=== PATIENT | male | born 1955 ===

== ENCOUNTER 2017-01-16 07:26 | Day surgery (SDC) | payer OTHER ==
[2017-01-16 09:00] VITALS: BMI 29.9
[2017-01-16] MEDS ORDERED: Propofol 10 mg/ml Inj (20 ML) ONE ×2 (10:20→10:40)
[2017-01-16] MEDS ORDERED: Lactated Ringer's 500 ML IV ONE (10:26)
--- NOTE | 2017-01-16 10:26 | CP.SDSHP ---
Same Day Surgery H & P - History Proposed Procedure: COLONSCOPY Pre-Op Diagnosis: SEE NOTES - Previous Medical/Surgical History Cardiac: Hypertension Endocrine/Metabolic: Diabetes Neuro: Backaches, Other - Allergies Allergies: Allergies No Known Allergies Allergy (Verified 01/16/17 08:58) - Physical Exam General Appearance: N Vital Signs: Vital Signs 01/16/17 09:08 Temperature 97 F L Pulse Rate 90 Respiratory 20 Rate Blood Pressure 149/97 H O2 Sat by Pulse 97 Oximetry Mental Status: Alert & Oriented x3 Neuro: Other Heart: Other Lungs: WNL GI: WNL - {Optional Preform as Required} Breast: WNL Abdomen: Other Rectal: Other Integument: WNL : WNL Ortho: Other ENT: WNL - Impression Pt. Evaluated Today:Candidate for Anesthesia & Procedure: Yes - Date & Time Time: 10:26 Short Stay Discharge - Short Stay Discharge Admitting Diagnosis/Reason for Visit: RECTAL BLEEDING Disposition: HOME/ ROUTINE
[2017-01-16] MEDS ORDERED: Belladonna-Phenobarbital PO STA (10:28)
[2017-01-16 12:01] VITALS: RESP 15
[2017-01-16 13:51] VITALS: BP 148/88; PULSE 96; TEMP 98; O2SAT 96
== END 2017-01-16 12:10 | disposition home or self-care (01) ==
LOC: C.ENDO 07:26
PROVIDERS: ATTEND Specialist
DX: K64.4 Residual hemorrhoidal skin tags (principal); K64.8 Other hemorrhoids; K58.9 Irritable bowel syndrome, unspecified; E11.9 Type 2 diabetes mellitus without complications; I10 Essential (primary) hypertension
CPT/HCPCS: 45380; 82948; 88305; J2704; J7120

== ENCOUNTER 2017-04-22 11:05 | Inpatient (IN) | payer MEDICAID, OTHER ==
[2017-04-22 11:11] VITALS: BMI 30.7
--- NOTE | 2017-04-22 11:51 | C.PDOC ---
History Of Present Illness 61 yo male w/PMHx of HTN, NIDDM, come in for evaluation of fever ( T max 103F), bodyaches, malaise for past 2 days. Pt admits, (+) sick contact "family member with sinus infection". Pt admits, returned from [place] 2 weeks ago. Otherwise, pt denies headache, dizziness, syncopy, neck pain, sore throat, drooling, rash, CP, SOB, cough, wheezing, palpitation, abd. pain, N/V/D, UTi sx. Ambulate to ED for evaluation, not in any apparent distress. Pt reports, last dose of tylenol 2 hrs [employer]. Time Seen by Provider: 04/22/17 11:21 Chief Complaint (Nursing): Fever History Per: Patient Onset/Duration Of Symptoms: Gradual Current Symptoms Are (Timing): Worse Past Medical History Reviewed: Historical Data, Nursing Documentation, Vital Signs Vital Signs: Last Vital Signs Temp 98.3 F 04/24/17 07:26 Pulse 102 H 04/24/17 07:26 Resp 20 04/24/17 07:26 BP 149/86 04/24/17 09:10 Pulse Ox 94 L 04/24/17 09:27 - Medical History PMH: Diabetes, HTN, TIA (2015; NO RESIDUAL WEAKNESS) Denies: Colonic Polyps, Fractures Other Surgeries: not contributory Family History: States: No Known Family Hx - Social History Hx Tobacco Use: No Hx Alcohol Use: No Hx Substance Use: No - Immunization History Hx Tetanus Toxoid Vaccination: No Hx Influenza Vaccination: Yes Hx Pneumococcal Vaccination: No Review Of Systems Except As Marked, All Systems Reviewed And Found Negative. Constitutional: Positive for: Fever, Malaise Eyes: Negative for: Vision Change, Eyelid Inflammation, Redness ENT: Negative for: Ear Discharge, Nose Discharge, Mouth Swelling, Throat Pain, Throat Swelling Cardiovascular: Negative for: Chest Pain, Palpitations Respiratory: Negative for: Cough, Shortness of Breath, SOB with Excertion, Pleuritic Pain, Sputum, Wheezing Gastrointestinal: Negative for: Nausea, Vomiting, Abdominal Pain, Diarrhea Genitourinary: Negative for: Dysuria, Frequency, Hematuria, Penile Discharge Musculoskeletal: Negative for: Back Pain Skin: Negative for: Rash Neurological: Negative for: Weakness, Numbness, Altered Mental Status, Headache , Dizziness Physical Exam - Physical Exam Appears: Well, Non-toxic, No Acute Distress Skin: Normal Color, Warm, Dry, No Rash Eye(s): bilateral: PERRL Ear(s): Left: Normal Nose: No Flaring, No Discharge Oral Mucosa: Moist Tongue: Normal Appearing Lips: Normal Appearing Throat: Erythema (mild B/L , no edema, no exudate.), No Exudate, No Drooling Neck: Supple, Other ((-) carotid bruits) Cardiovascular: Rhythm Regular (tachy), No Friction Rub, No Murmur Respiratory: Decreased Breath Sounds (Right base), No Accessory Muscle Use, Rhonchi (scattered Right base), No Stridor, No Wheezing Gastrointestinal/Abdominal: Soft, Tenderness, No Distention, No Guarding Back: No CVA Tenderness Extremity: No Pedal Edema, No Deformity Neurological/Psych: Oriented x3, Normal Speech ED Course And Treatment - Laboratory Results Result Diagrams: 04/24/17 07:46 04/24/17 07:46 Lab Interpretation: Abnormal ECG: Interpreted By Me, Viewed By Me (and ED attending) ECG Rhythm: Sinus Tachycardia ECG Interpretation: Abnormal Interpretation Of ECG: Sinus tachy@125/min, occasional PVC, LAD, no acute ST-T changes. O2 Sat by Pulse Oximetry: 94 Pulse Ox Interpretation: Abnormal - Radiology CXR Interpretation: Yes: Infiltrates - Other Rad CXR X-Ray: Read By Radiologist Interpretation: Accession No. : [id number]. Patient Name / ID : JORDI BRUNSON / [id number]. Exam Date : 04/22/2017 11:43:37 ( Approved ). Study Comment : Sex / Age : M / 61Y. Creator : Miguel Keyes MD. Dictator : Miguel Keyes MD. Surgical Instrument Technician : Direct Chill Caster : Miguel Keyes MD. Approver2 : Report Date : 04/22/2017 12:30:50. My Comment : . HISTORY: Sepsis Patient. COMPARISON: No prior. TECHNIQUE: Chest PA and lateral. FINDINGS: LUNGS: Right lower lobe infiltrate suggestive of pneumonia. PLEURA : No significant pleural effusion identified. No pneumothorax apparent. CARDIOVASCULAR: Normal. OSSEOUS STRUCTURES: No significant abnormalities. VISUALIZED UPPER ABDOMEN: Normal. OTHER FINDINGS: None. IMPRESSION: Right lower lobe pneumonia. Progress Note: Pt presented to ED with sx of sepsis. Septic work up was ordered. Vigorous hydration with NS was ordered. After diagnostics and imaging review, pt has clinical findings c/w PNA r/o sepsis. Abx orederd. Case discussed with ED attending DR. Boggs. On re-eavluation, pt appears stable, comfortable, not in respirtaory distress, no evidence of acidosis. Case discussed with Hospitalist and admission arranged to tele. Critical Care Time - Critical Care Note Total Time (in mins): 50 Documented critical care: time excludes all time spent performing seperately billable procedures. Disposition - Disposition Disposition: HOSPITALIZED Disposition Time: 13:38 Condition: STABLE - Clinical Impression Clinical Impression: Pneumonia, Sepsis
[2017-04-22 12:00] LABS: BASO # 0.1 K/uL (0.0-0.2); BASO % 0.4 % (0.0-2.0); EOS % 0.1 % (0.0-4.0); HEMATOCRIT 44.8 % (35.0-51.0); LYMPH # 1.8 K/uL (1.0-4.3); LYMPH % 9.9 % (20.0-40.0); MEAN CELL VOLUME 83.9 fL (80.0-94.0); MEAN CORPUSCULAR HGB CONC 34.5 g/dL (33.0-37.0); MEAN PLATELET VOLUME 7.6 fL (7.2-11.7); MONO # 1.4 K/uL (0.0-0.8); NRBC % 0.1 % (0.0-2.0); PLATELET COUNT 310 K/uL (130-400); WHITE BLOOD COUNT 17.8 K/uL (4.8-10.8)
[2017-04-22 12:09] LABS: POTASSIUM 3.8 mmol/L (3.6-5.2); SODIUM 132 mmol/L (132-148)
[2017-04-22 12:11] LABS: ALB/GLOB RATIO 1.1 (1.0-2.1); ALKALINE PHOSPHATASE 95 U/L (38-126); AST/SGOT 26 U/L (17-59); BILIRUBIN,TOTAL 1.2 mg/dL (0.2-1.3); BLOOD UREA NITROGEN 9 mg/dL (9-20); CARBON DIOXIDE 25 mmol/L (22-30); GFR AFRICAN-AMERICAN > 60; INR 1.3; TOTAL PROTEIN 7.1 g/dL (6.3-8.3)
[2017-04-22 12:11] LABS: VENOUS BLOOD GAS BASE EXCESS 0.6 mmol/L (0.0-2.0); VENOUS BLOOD GAS PCO2 36 mmHg (40-60); VENOUS BLOOD PH 7.44 (7.32-7.43)
[2017-04-22 12:12] LABS: ALT/SGPT 46 U/L (21-72); CALCIUM 9.3 mg/dl (8.6-10.4); GLUCOSE,RANDOM 352 mg/dL (75-110); MAGNESIUM 1.6 mg/dL (1.6-2.3); PHOSPHOROUS 2.7 mg/dL (2.5-4.5)
[2017-04-22 12:14] LABS: CHLORIDE 91 mmol/L (98-107)
--- NOTE | 2017-04-22 12:32 | RAD ---
HISTORY: Sepsis Patient COMPARISON: No prior. TECHNIQUE: Chest PA and lateral FINDINGS: LUNGS: Right lower lobe infiltrate suggestive of pneumonia. PLEURA: No significant pleural effusion identified. No pneumothorax apparent. CARDIOVASCULAR: Normal. OSSEOUS STRUCTURES: No significant abnormalities. VISUALIZED UPPER ABDOMEN: Normal. OTHER FINDINGS: None. IMPRESSION: Right lower lobe pneumonia. No preliminary report provided by emergency department personnel.
[2017-04-22 12:40] LABS: RBC URINE 1 /hpf (0-3); URINE BILIRUBIN NEGATIVE (NEGATIVE); URINE BLOOD NEGATIVE (NEGATIVE); URINE COLOR Yellow (YELLOW); URINE GLUCOSE (UA) 3+ mg/dL (Normal); URINE KETONE 1+ mg/dL (NEGATIVE); URINE LEUKOCYTE ESTERASE NEG Leu/uL (Negative); URINE PROTEIN 2+ mg/dL (NEGATIVE); URINE UROBILINOGEN NORMAL mg/dL (0.2-1.0); WBC URINE 1 /hpf (0-5)
[2017-04-22] MEDS ORDERED: Piperacill/Tazo 4.5gm in Dex 4.5 GM/100 ML BAG IVPB STA (13:35)
[2017-04-22] MEDS ORDERED: Albuterol 0.083% Inhal Sol (2.5 mg/3 mL) UD IH STA (13:38)
--- NOTE | 2017-04-22 14:08 | CP.PCM.HP ---
<Luann العراقي - Last Filed: 04/22/17 16:29> History of Present Illness - History of Present Illness History of Present Illness: Medicine Note for Dr. Jessica George CC: fever HPI: 61M with PMHx DM presents to the ED with fever, chills, night sweats, generalized body ache, weakness, and a nonproductive cough x 1 day. Patient reports he recently came back from [place] on 04/09/17. He was there for 21 days, were he admitted to being around a sick contact, his daughter who was diagnosed with sinusitis. He reported feeling the symptoms listed above, started yesterday after returning from the [place]. He came home and took his temperature and it was 102.3F, so he took Tylenol. Patient woke up this morning and continued to feel the same so he came to the ED. Reports he was admitted to [facility] for pneumonia several years ago. He stated he received his pneumonia vaccine in Fall 2015. Denied chest pain, abdominal pain, n/v/c, or urinary symptoms. PMHx: NIDM PSHx: Denied Meds: As per NOV All: NKDA SHx: Used to smoke 1PPD for 30 years, stopped 10 years ago, drinks alcohol socially, denied illicit drug use. FHx: Unremarkable Present on Admission - Present on Admission Any Indicators Present on Admission: No Past Patient History - Past Medical History & Family History Past Medical History?: Yes - Past Social History Smoking Status: Former Smoker - CARDIAC Hx Hypertension: Yes - NEUROLOGICAL Hx Transient Ischemic Attacks (TIA): Yes (2014; NO RESIDUAL WEAKNESS) - ENDOCRINE/METABOLIC Hx Endocrine Disorders: Yes Hx Diabetes Mellitus Type 2: Yes - HEMATOLOGICAL/ONCOLOGICAL Hx Blood Transfusions: No - MUSCULOSKELETAL/RHEUMATOLOGICAL Hx Fractures: No - GASTROINTESTINAL Hx Gastrointestinal Disorders: No - PSYCHIATRIC Hx Substance Use: No - SURGICAL HISTORY Hx Surgeries: No - ANESTHESIA Hx Anesthesia: No Hx Anesthesia Reactions: No Hx Malignant Hyperthermia: No Meds Allergies/Adverse Reactions: Allergies Allergy/AdvReac Type Severity Reaction Status Date / Time No Known Allergies Allergy Verified 04/22/17 11:09 Physical Exam - Constitutional Appears: Toxic - Head Exam Head Exam: NORMAL INSPECTION, NORMOCEPHALIC - Eye Exam Eye Exam: EOMI, Normal appearance, PERRL - ENT Exam ENT Exam: Mucous Membranes Dry - Respiratory Exam Respiratory Exam: Decreased Breath Sounds, NORMAL BREATHING PATTERN Additional comments: Decreased breath sounds on the right - Cardiovascular Exam Cardiovascular Exam: Tachycardia - GI/Abdominal Exam GI & Abdominal Exam: Distended, Firm, Normal Bowel Sounds, Soft. absent: Organomegaly - Extremities Exam Extremities exam: Positive for: normal inspection, pedal pulses present. Negative for: pedal edema, tenderness - Back Exam Back exam: NORMAL INSPECTION. absent: CVA tenderness (L), CVA tenderness (R) - Neurological Exam Neurological exam: Alert, CN II-XII Intact, Oriented x3 - Psychiatric Exam Psychiatric exam: Normal Affect, Normal Mood - Skin Skin Exam: Diaphoretic, Intact, Warm Results - Vital Signs Recent Vital Signs: Last Vital Signs Temp 98.5 F 04/22/17 13:08 Pulse 112 H 04/22/17 13:08 Resp 22 04/22/17 13:08 BP 159/87 H 04/22/17 13:08 Pulse Ox 94 L 04/22/17 13:38 - Labs Result Diagrams: 04/22/17 11:56 04/22/17 11:56 Labs: Laboratory Results - last 24 hr 04/22/17 04/22/17 04/22/17 11:34 11:56 11:56 WBC 17.8 H RBC 5.33 Hgb 15.4 Hct 44.8 MCV 83.9 MCH 29.0 MCHC 34.5 RDW 14.0 Plt Count 310 MPV 7.6 Neut % (Auto) 81.6 H Lymph % (Auto) 9.9 L [place] % (Auto) 8.0 Eos % (Auto) 0.1 Baso % (Auto) 0.4 Neut # 14.6 H Lymph # 1.8 [place] # 1.4 H Eos # 0.0 Baso # 0.1 PT 14.4 H INR 1.3 APTT 29 pO2 VBG pH VBG pCO2 VBG HCO3 VBG Total CO2 VBG O2 Sat (Calc) VBG Base Excess VBG Potassium Glucose Lactate Sodium Potassium Chloride Carbon Dioxide Anion Gap BUN Creatinine Est GFR ( Amer) Est GFR (Non-Af Amer) Random Glucose Calcium Phosphorus Magnesium Total Bilirubin AST ALT Alkaline Phosphatase Troponin I Total Protein Albumin Globulin Albumin/Globulin Ratio Venous Blood Potassium Urine Color Urine Clarity Urine pH Ur Specific [place] Urine Protein Urine Glucose (UA) Urine Ketones Urine Blood Urine Nitrate Urine Bilirubin Urine Urobilinogen Ur Leukocyte Esterase Urine WBC (Auto) Urine RBC (Auto) Ur Squamous Epith Cells Influenza Typ A,B (EIA) Negative for flu a/b Grp A Beta Strep Ag Negative 04/22/17 04/22/17 04/22/17 11:56 12:02 12:15 WBC RBC Hgb Hct MCV MCH MCHC RDW Plt Count MPV Neut % (Auto) Lymph % (Auto) [place] % (Auto) Eos % (Auto) Baso % (Auto) Neut # Lymph # [place] # Eos # Baso # PT INR APTT pO2 28 L VBG pH 7.44 H VBG pCO2 36 L VBG HCO3 24.3 VBG Total CO2 25.6 VBG O2 Sat (Calc) 63.8 VBG Base Excess 0.6 VBG Potassium 3.8 Glucose 366 H Lactate 2.3 H Sodium 132 133.0 Potassium 3.8 Chloride 91 L 95.0 L Carbon Dioxide 25 Anion Gap 20 BUN 9 Creatinine 0.8 Est GFR ( Amer) > 60 Est GFR (Non-Af Amer) > 60 Random Glucose 352 H Calcium 9.3 Phosphorus 2.7 Magnesium 1.6 Total Bilirubin 1.2 AST 26 ALT 46 Alkaline Phosphatase 95 Troponin I < 0.0120 Total Protein 7.1 Albumin 3.7 Globulin 3.4 Albumin/Globulin Ratio 1.1 Venous Blood Potassium 3.8 Urine Color Yellow Urine Clarity Clear Urine pH 6.0 Ur Specific [place] 1.033 H Urine Protein 2+ H Urine Glucose (UA) 3+ H Urine Ketones 1+ H Urine Blood Negative Urine Nitrate Negative Urine Bilirubin Negative Urine Urobilinogen Normal Ur Leukocyte Esterase Neg Urine WBC (Auto) 1 Urine RBC (Auto) 1 Ur Squamous Epith Cells < 1 Influenza Typ A,B (EIA) Grp A Beta Strep Ag Assessment & Plan - Assessment and Plan (Free Text) Plan: RLL Pneumonia * Low grade fever, tachycardia, leukocytosis with left shift, lactate of 2.3 -- > 2.1 --> F/U repeat * Code Sepsis called - Dr. Kay consulted- help appreciated * Patient was given 3L of fluids in the ED. * CXR: RLL Pneumonia * Negative Influenza and Group B Strep * Duonebs PRN, Tylenol PRN, Placed on NS @80cc/hr * Started on Rocephin and Azithromax 04/22/17 - last hospitalization was 5/9/17, > than 2 months * Blood cultures ordered, Urine legionella, Mycoplasma and Strep Pneumonia Code Sepsis * Patient does not meet sepsis criteria on qSOFA and SOFA criteria * Please see above DM * Accuchecks * Patient takes at home: Amaryl 4mg PO BID and Janumet 1 tab PO BID - HELD * ISS-High * Diabetic Diet * Started on Crestor 5mg PO QHS * Patient counselled on following up with Podiatry every year and ophthalmology every 2 years. * F/U HGA1C, TSH, T4 Questionable Hx of HTN * Patient started on Vasotec 10mg PO daily * EKG: Sinus tachy@125/min, occasional PVC, LAD, no acute ST-T changes * F/U lipid panel Hx of Questionable CVA * ASA 81mg PO daily Hx of Rectal bleeding * Colonoscopy on 01/16/2017 - non- bleeding external and internal hemorrhoids * Pathology - benign Prophylactic Measures * GI PPX: Pepcid 20mg PO daily * DVT PPX: SCDs, Lovenox 40mg SC daily DW Dulce Maria Goodwin DO, PGY-1 <Jason George - Last Filed: 04/22/17 22:00> Results - Vital Signs Recent Vital Signs: Last Vital Signs Temp 98 F 04/22/17 20:37 Pulse 100 H 04/22/17 20:37 Resp 30 H 04/22/17 20:37 BP 118/98 H 04/22/17 20:37 Pulse Ox 97 04/22/17 20:37 - Labs Result Diagrams: 04/22/17 11:56 04/22/17 11:56 Labs: Laboratory Results - last 24 hr 04/22/17 04/22/17 15:35 19:41 pO2 21 L VBG pH 7.39 VBG pCO2 37 L VBG HCO3 21.5 VBG Total CO2 23.5 VBG O2 Sat (Calc) 42.4 VBG Base Excess -2.2 L VBG Potassium 3.2 L Sodium 137.0 Chloride 103.0 Glucose 301 H Lactate 2.1 Lactic Acid 2.7 H Venous Blood Potassium 3.2 L Attending/Attestation - Attestation I have personally seen and examined this patient.: Yes I have fully participated in the care of the patient.: Yes I have reviewed all pertinent clinical information: Yes Notes (Text): 04/22/17 21:59 Patient was seen and examined with the resident History, Physical, Assessment and Plan were thoroughly gone over with the resident. Jason George D.O.
[2017-04-22] MEDS ORDERED: Albuterol-Ipratrop 3 mg / 0.5 (3 ml) UD ONE (14:11)
[2017-04-22] MEDS ORDERED: Albuterol-Ipratrop 3 mg / 0.5 (3 ml) UD INH PRN (14:25)
[2017-04-22] MEDS ORDERED: Sodium Chloride 0.9% 1,000 ML IV SCH ×2 (14:30→17:00)
[2017-04-22 14:35] LABS: NEUTROPHIL 79 % (50-75); TOTAL CELLS COUNTED 100
[2017-04-22 15:42] LABS: VENOUS BLOOD GAS BASE EXCESS -2.2 mmol/L (0.0-2.0); VENOUS BLOOD GAS PCO2 37 mmHg (40-60); VENOUS BLOOD PH 7.39 (7.32-7.43)
[2017-04-22] MEDS ORDERED: (Novolin R) Insulin Human Regular 100 units/ml vial SC SCH ×3 (16:30)
[2017-04-22] MEDS ORDERED: cefTRIAXone IV 1 gm in Dextros 50 ML IVPB ONE (17:26)
[2017-04-22] MEDS ORDERED: Azithromycin 500mg/250ML NS 500 MG/250 ML BAG IVPB ONE (17:43)
[2017-04-22] MEDS: Azithromycin 500 MG in Sodium Chloride 0.9% 250 ML IVPB SCH (17:44)
[2017-04-22 17:59] LABS: T4 6.2 ug/dL (5.5-11.0)
[2017-04-22 18:13] LABS: THYROID STIMULATING HORMONE 0.99 mIU/L (0.46-4.68)
[2017-04-22] MEDS: (Novolin R) Insulin Human Regular 100 units/ml vial SC SCH (23:09)
[2017-04-23 06:39] LABS: ALB/GLOB RATIO 1.1 (1.0-2.1); ALKALINE PHOSPHATASE 80 U/L (38-126); ALT/SGPT 37 U/L (21-72); AST/SGOT 24 U/L (17-59); BILIRUBIN,TOTAL 0.6 mg/dL (0.2-1.3); BLOOD UREA NITROGEN 7 mg/dL (9-20); CALCIUM 8.5 mg/dl (8.6-10.4); CARBON DIOXIDE 24 mmol/L (22-30); CHLORIDE 98 mmol/L (98-107); CHOLESTEROL 135 mg/dL (0-199); GFR AFRICAN-AMERICAN > 60; GLUCOSE,RANDOM 284 mg/dL (75-110); POTASSIUM 3.7 mmol/L (3.6-5.2); SODIUM 134 mmol/L (132-148); TOTAL PROTEIN 6.1 g/dL (6.3-8.3)
[2017-04-23 07:07] LABS: BASO % 0.3 % (0.0-2.0); EOS # 0.1 K/uL (0.0-0.7); EOS % 0.9 % (0.0-4.0); LYMPH # 2.1 K/uL (1.0-4.3); LYMPH % 14.7 % (20.0-40.0); MEAN CELL VOLUME 84.5 fL (80.0-94.0); MEAN CORPUSCULAR HEMOGLOBIN 28.6 pg (27.0-31.0); MEAN CORPUSCULAR HGB CONC 33.9 g/dL (33.0-37.0); MEAN PLATELET VOLUME 7.8 fL (7.2-11.7); MONO # 1.2 K/uL (0.0-0.8); MONO % 8.7 % (0.0-10.0); WHITE BLOOD COUNT 14.3 K/uL (4.8-10.8)
[2017-04-23] MEDS: (Novolin R) Insulin Human Regular 100 units/ml vial SC SCH ×4 (09:22→22:10)
[2017-04-23] MEDS: Enoxaparin 40 mg Syringe SC SCH (10:48)
[2017-04-23] MEDS: Azithromycin 500 MG in Sodium Chloride 0.9% 250 ML IVPB SCH (12:45)
--- NOTE | 2017-04-23 18:23 | CP.PCM.CON ---
History of Present Illness - History of Present Illness History of Present Illness: dictated Past Patient History - Past Medical History & Family History Past Medical History?: Yes - Past Social History Smoking Status: Former Smoker - CARDIAC Hx Hypertension: Yes - PULMONARY Hx Pneumonia: Yes - NEUROLOGICAL Hx Transient Ischemic Attacks (TIA): Yes (2014; NO RESIDUAL WEAKNESS) - HEENT Hx HEENT Problems: No - RENAL Hx Chronic Kidney Disease: No - ENDOCRINE/METABOLIC Hx Endocrine Disorders: Yes Hx Diabetes Mellitus Type 2: Yes - HEMATOLOGICAL/ONCOLOGICAL Hx Blood Disorders: No Hx Blood Transfusions: No - INTEGUMENTARY Hx Dermatological Problems: No - MUSCULOSKELETAL/RHEUMATOLOGICAL Hx Musculoskeletal Disorders: No Hx Falls: No Hx Fractures: No - GASTROINTESTINAL Hx Gastrointestinal Disorders: No - GENITOURINARY/GYNECOLOGICAL Hx Genitourinary Disorders: No - PSYCHIATRIC Hx Psychophysiologic Disorder: No Hx Substance Use: No - SURGICAL HISTORY Hx Surgeries: No - ANESTHESIA Hx Anesthesia: No Hx Anesthesia Reactions: No Hx Malignant Hyperthermia: No Meds Allergies/Adverse Reactions: Allergies Allergy/AdvReac Type Severity Reaction Status Date / Time No Known Allergies Allergy Verified 04/22/17 11:09 - Medications Medications: Current Medications Albuterol/Ipratropium (Duoneb 3 Mg/0.5 Mg (3 Ml) Ud) 3 ml INH RQ6 PRN PRN Reason: Wheezing Aspirin (Aspirin Chewable) 81 mg PO DAILY [facility] Last Admin: 04/23/17 10:48 Dose: 81 mg Enalapril Maleate (Vasotec) 10 mg PO DAILY [facility] Last Admin: 04/23/17 10:48 Dose: 10 mg Enoxaparin Sodium (Lovenox) 40 mg SC DAILY [facility] Last Admin: 04/23/17 10:48 Dose: 40 mg Famotidine (Pepcid) 20 mg PO DAILY [facility] Last Admin: 04/23/17 10:48 Dose: 20 mg Azithromycin 500 mg/ Sodium (Chloride) 250 mls @ 250 mls/hr IVPB DAILY [facility] Last Admin: 04/23/17 12:45 Dose: 250 mls/hr Ceftriaxone Sodium 1 gm/ (Sodium Chloride) 100 mls @ 100 mls/hr IVPB DAILY [facility] Last Admin: 04/23/17 09:22 Dose: 100 mls/hr Insulin Human Regular (Novolin R) 0 unit SC ACHS [facility] PRN Reason: Protocol Last Admin: 04/23/17 12:43 Dose: 6 unit Pneumococcal Polyvalent Vaccine (Pneumovax 23 Vaccine) 0.5 ml IM .ONCE ONE Stop: 04/24/17 10:01 Rosuvastatin Calcium (Crestor) 5 mg PO HS SHRUTHI Last Admin: 04/22/17 22:52 Dose: 5 mg Results - Vital Signs Recent Vital Signs: Last Vital Signs Temp 99.2 F 04/23/17 16:43 Pulse 108 H 04/23/17 16:43 Resp 20 04/23/17 16:43 BP 165/84 H 04/23/17 16:43 Pulse Ox 95 04/23/17 16:43 - Labs Result Diagrams: 04/23/17 06:22 04/23/17 06:22 Labs: Laboratory Results - last 24 hr 04/22/17 04/22/17 04/23/17 19:41 23:04 06:22 WBC 14.3 H RBC 5.21 Hgb 14.9 Hct 44.0 MCV 84.5 MCH 28.6 MCHC 33.9 RDW 14.0 Plt Count 279 MPV 7.8 Neut % (Auto) 75.4 H Lymph % (Auto) 14.7 L [place] % (Auto) 8.7 Eos % (Auto) 0.9 Baso % (Auto) 0.3 Neut # 10.8 H Lymph # 2.1 [place] # 1.2 H Eos # 0.1 Baso # 0.0 Sodium Potassium Chloride Carbon Dioxide Anion Gap BUN Creatinine Est GFR ( Amer) Est GFR (Non-Af Amer) POC Glucose (mg/dL) 256 H Random Glucose Hemoglobin A1c Lactic Acid 2.7 H Calcium Total Bilirubin AST ALT Alkaline Phosphatase Total Protein Albumin Globulin Albumin/Globulin Ratio Triglycerides Cholesterol LDL Cholesterol Direct HDL Cholesterol 04/23/17 04/23/17 04/23/17 06:22 06:22 06:53 WBC RBC Hgb Hct MCV MCH MCHC RDW Plt Count MPV Neut % (Auto) Lymph % (Auto) [place] % (Auto) Eos % (Auto) Baso % (Auto) Neut # Lymph # [place] # Eos # Baso # Sodium 134 Potassium 3.7 Chloride 98 Carbon Dioxide 24 Anion Gap 15 BUN 7 L Creatinine 0.6 L Est GFR ( Amer) > 60 Est GFR (Non-Af Amer) > 60 POC Glucose (mg/dL) 294 H Random Glucose 284 H Hemoglobin A1c 11.1 H Lactic Acid Calcium 8.5 L Total Bilirubin 0.6 AST 24 ALT 37 Alkaline Phosphatase 80 Total Protein 6.1 L Albumin 3.2 L Globulin 2.8 Albumin/Globulin Ratio 1.1 Triglycerides 204 H Cholesterol 135 LDL Cholesterol Direct 96 HDL Cholesterol 19 L 04/23/17 04/23/17 11:47 17:23 WBC RBC Hgb Hct MCV MCH MCHC RDW Plt Count MPV Neut % (Auto) Lymph % (Auto) [place] % (Auto) Eos % (Auto) Baso % (Auto) Neut # Lymph # [place] # Eos # Baso # Sodium Potassium Chloride Carbon Dioxide Anion Gap BUN Creatinine Est GFR ( Amer) Est GFR (Non-Af Amer) POC Glucose (mg/dL) 293 H 300 H Random Glucose Hemoglobin A1c Lactic Acid Calcium Total Bilirubin AST ALT Alkaline Phosphatase Total Protein Albumin Globulin Albumin/Globulin Ratio Triglycerides Cholesterol LDL Cholesterol Direct HDL Cholesterol
--- NOTE | 2017-04-23 18:35 | CP.PCM.CON ---
History of Present Illness - History of Present Illness History of Present Illness: dictated Past Patient History - Past Medical History & Family History Past Medical History?: Yes - Past Social History Smoking Status: Former Smoker - CARDIAC Hx Hypertension: Yes - PULMONARY Hx Pneumonia: Yes - NEUROLOGICAL Hx Transient Ischemic Attacks (TIA): Yes (2014; NO RESIDUAL WEAKNESS) - HEENT Hx HEENT Problems: No - RENAL Hx Chronic Kidney Disease: No - ENDOCRINE/METABOLIC Hx Endocrine Disorders: Yes Hx Diabetes Mellitus Type 2: Yes - HEMATOLOGICAL/ONCOLOGICAL Hx Blood Disorders: No Hx Blood Transfusions: No - INTEGUMENTARY Hx Dermatological Problems: No - MUSCULOSKELETAL/RHEUMATOLOGICAL Hx Musculoskeletal Disorders: No Hx Falls: No Hx Fractures: No - GASTROINTESTINAL Hx Gastrointestinal Disorders: No - GENITOURINARY/GYNECOLOGICAL Hx Genitourinary Disorders: No - PSYCHIATRIC Hx Psychophysiologic Disorder: No Hx Substance Use: No - SURGICAL HISTORY Hx Surgeries: No - ANESTHESIA Hx Anesthesia: No Hx Anesthesia Reactions: No Hx Malignant Hyperthermia: No Meds Allergies/Adverse Reactions: Allergies Allergy/AdvReac Type Severity Reaction Status Date / Time No Known Allergies Allergy Verified 04/22/17 11:09 - Medications Medications: Current Medications Albuterol/Ipratropium (Duoneb 3 Mg/0.5 Mg (3 Ml) Ud) 3 ml INH RQ6 PRN PRN Reason: Wheezing Aspirin (Aspirin Chewable) 81 mg PO DAILY [facility] Last Admin: 04/23/17 10:48 Dose: 81 mg Enalapril Maleate (Vasotec) 10 mg PO DAILY [facility] Last Admin: 04/23/17 10:48 Dose: 10 mg Enoxaparin Sodium (Lovenox) 40 mg SC DAILY [facility] Last Admin: 04/23/17 10:48 Dose: 40 mg Famotidine (Pepcid) 20 mg PO DAILY [facility] Last Admin: 04/23/17 10:48 Dose: 20 mg Azithromycin 500 mg/ Sodium (Chloride) 250 mls @ 250 mls/hr IVPB DA[facility] Last Admin: 04/23/17 12:45 Dose: 250 mls/hr Ceftriaxone Sodium 1 gm/ (Sodium Chloride) 100 mls @ 100 mls/hr IVPB DAILY [facility] Last Admin: 04/23/17 09:22 Dose: 100 mls/hr Insulin Human Regular (Novolin R) 0 unit SC ACHS [facility] PRN Reason: Protocol Last Admin: 04/23/17 12:43 Dose: 6 unit Pneumococcal Polyvalent Vaccine (Pneumovax 23 Vaccine) 0.5 ml IM .ONCE ONE Stop: 04/24/17 10:01 Rosuvastatin Calcium (Crestor) 5 mg PO HS SHRUTHI Last Admin: 04/22/17 22:52 Dose: 5 mg Results - Vital Signs Recent Vital Signs: Last Vital Signs Temp 99.2 F 04/23/17 16:43 Pulse 108 H 04/23/17 16:43 Resp 20 04/23/17 16:43 BP 165/84 H 04/23/17 16:43 Pulse Ox 95 04/23/17 16:43 - Labs Result Diagrams: 04/23/17 06:22 04/23/17 06:22 Labs: Laboratory Results - last 24 hr 04/22/17 04/22/17 04/23/17 19:41 23:04 06:22 WBC 14.3 H RBC 5.21 Hgb 14.9 Hct 44.0 MCV 84.5 MCH 28.6 MCHC 33.9 RDW 14.0 Plt Count 279 MPV 7.8 Neut % (Auto) 75.4 H Lymph % (Auto) 14.7 L [place] % (Auto) 8.7 Eos % (Auto) 0.9 Baso % (Auto) 0.3 Neut # 10.8 H Lymph # 2.1 [place] # 1.2 H Eos # 0.1 Baso # 0.0 Sodium Potassium Chloride Carbon Dioxide Anion Gap BUN Creatinine Est GFR ( Amer) Est GFR (Non-Af Amer) POC Glucose (mg/dL) 256 H Random Glucose Hemoglobin A1c Lactic Acid 2.7 H Calcium Total Bilirubin AST ALT Alkaline Phosphatase Total Protein Albumin Globulin Albumin/Globulin Ratio Triglycerides Cholesterol LDL Cholesterol Direct HDL Cholesterol 04/23/17 04/23/17 04/23/17 06:22 06:22 06:53 WBC RBC Hgb Hct MCV MCH MCHC RDW Plt Count MPV Neut % (Auto) Lymph % (Auto) [place] % (Auto) Eos % (Auto) Baso % (Auto) Neut # Lymph # [place] # Eos # Baso # Sodium 134 Potassium 3.7 Chloride 98 Carbon Dioxide 24 Anion Gap 15 BUN 7 L Creatinine 0.6 L Est GFR ( Amer) > 60 Est GFR (Non-Af Amer) > 60 POC Glucose (mg/dL) 294 H Random Glucose 284 H Hemoglobin A1c 11.1 H Lactic Acid Calcium 8.5 L Total Bilirubin 0.6 AST 24 ALT 37 Alkaline Phosphatase 80 Total Protein 6.1 L Albumin 3.2 L Globulin 2.8 Albumin/Globulin Ratio 1.1 Triglycerides 204 H Cholesterol 135 LDL Cholesterol Direct 96 HDL Cholesterol 19 L 04/23/17 04/23/17 11:47 17:23 WBC RBC Hgb Hct MCV MCH MCHC RDW Plt Count MPV Neut % (Auto) Lymph % (Auto) [place] % (Auto) Eos % (Auto) Baso % (Auto) Neut # Lymph # [place] # Eos # Baso # Sodium Potassium Chloride Carbon Dioxide Anion Gap BUN Creatinine Est GFR ( Amer) Est GFR (Non-Af Amer) POC Glucose (mg/dL) 293 H 300 H Random Glucose Hemoglobin A1c Lactic Acid Calcium Total Bilirubin AST ALT Alkaline Phosphatase Total Protein Albumin Globulin Albumin/Globulin Ratio Triglycerides Cholesterol LDL Cholesterol Direct HDL Cholesterol
--- NOTE | 2017-04-23 20:14 | CP.PCM.PN ---
<Isidro Gale - Last Filed: 04/23/17 20:14> Subjective - Date & Time of Evaluation Date of Evaluation: 04/23/17 Time of Evaluation: 20:12 - Subjective Subjective: PGY-[address] Mari HPI: Patient seen and examined at bedside. Standing next to bed looking comfortable. Doing well with no complaints at this time. Feels as if he is breathing better. Denies N/V/D/F/CP/SOB/Chills. Objective - Vital Signs/Intake and Output Vital Signs (last 24 hours): Temp Pulse Resp BP Pulse Ox 98.3 F 80 22 140/77 93 L 04/23/17 19:08 04/23/17 19:08 04/23/17 19:08 04/23/17 19:08 04/23/17 19:08 Intake and Output: 04/23/17 04/24/17 18:59 06:59 Intake Total 850 Balance 850 - Medications Medications: Current Medications Albuterol/Ipratropium (Duoneb 3 Mg/0.5 Mg (3 Ml) Ud) 3 ml INH RQ6 PRN PRN Reason: Wheezing Aspirin (Aspirin Chewable) 81 mg PO DAILY [facility] Last Admin: 04/23/17 10:48 Dose: 81 mg Enalapril Maleate (Vasotec) 10 mg PO DAILY [facility] Last Admin: 04/23/17 10:48 Dose: 10 mg Enoxaparin Sodium (Lovenox) 40 mg SC DAILY [facility] Last Admin: 04/23/17 10:48 Dose: 40 mg Famotidine (Pepcid) 20 mg PO DAILY [facility] Last Admin: 04/23/17 10:48 Dose: 20 mg Azithromycin 500 mg/ Sodium (Chloride) 250 mls @ 250 mls/hr IVPB DAILY [facility] Last Admin: 04/23/17 12:45 Dose: 250 mls/hr Ceftriaxone Sodium 1 gm/ (Sodium Chloride) 100 mls @ 100 mls/hr IVPB DAILY [facility] Last Admin: 04/23/17 09:22 Dose: 100 mls/hr Insulin Human Regular (Novolin R) 0 unit SC ACHS SHRUTHI PRN Reason: Protocol Last Admin: 04/23/17 17:30 Dose: 8 unit Pneumococcal Polyvalent Vaccine (Pneumovax 23 Vaccine) 0.5 ml IM .ONCE ONE Stop: 04/24/17 10:01 Rosuvastatin Calcium (Crestor) 5 mg PO HS [facility] Last Admin: 04/22/17 22:52 Dose: 5 mg - Labs Labs: 04/23/17 06:22 04/23/17 06:22 PT 14.4 SECONDS (9.7-12.2) H 04/22/17 11:56 INR 1.3 04/22/17 11:56 APTT 29 SECONDS (21-34) 04/22/17 11:56 - Constitutional Appears: Well, Non-toxic, No Acute Distress - Eye Exam Eye Exam: EOMI - ENT Exam ENT Exam: Mucous Membranes Moist - Respiratory Exam Respiratory Exam: Clear to Ausculation Bilateral - Cardiovascular Exam Cardiovascular Exam: REGULAR RHYTHM - GI/Abdominal Exam GI & Abdominal Exam: Soft, Normal Bowel Sounds. absent: Distended, Tenderness - Neurological Exam Neurological Exam: Alert, Awake, Oriented x3 - Psychiatric Exam Psychiatric exam: Normal Affect, Normal Mood - Skin Skin Exam: Dry, Intact, Normal Color, Warm Assessment and Plan - Assessment and Plan (Free Text) Assessment: RLL Pneumonia * Low grade fever, tachycardia, leukocytosis with left shift, lactate of 2.3 -- > 2.1 --> 2.7 * Code Sepsis called - Dr. Kay consulted - F/U reccs * Patient was given 3L of fluids in the ED. * CXR: RLL Pneumonia * Negative Influenza and Group B Strep * Duonebs PRN, Tylenol PRN, Placed on NS @80cc/hr * Started on Rocephin and Azithromax 04/22/17 - last hospitalization was 01/16/17, > than 2 months * Blood cultures ordered, Urine legionella, Mycoplasma and Strep Pneumonia - Negative x1 day\ * 48 hours fever free with a downtrending WBC and patient can be D/c home Code Sepsis * Patient does not meet sepsis criteria on qSOFA and SOFA criteria * Please see above DM * Accuchecks * Patient takes at home: Amaryl 4mg PO BID and Janumet 1 tab PO BID - HELD * ISS-High * Diabetic Diet * Started on Crestor 5mg PO QHS * Patient counselled on following up with Podiatry every year and ophthalmology every 2 years. * HGA1C - 11.1 - Poorly controlled DM * TSH - 0.99 * T4 - 6.2 Questionable Hx of HTN * Patient started on Vasotec 10mg PO daily * EKG: Sinus tachy@125/min, occasional PVC, LAD, no acute ST-T changes * Lipid panel * TG - 204 * Total cholesterol - 135 * LDL - 96 * HDL - 19 Hx of Questionable CVA * ASA 81mg PO daily Hx of Rectal bleeding * Colonoscopy on 01/16/2017 - non- bleeding external and internal hemorrhoids * Pathology - benign Prophylactic Measures * GI PPX: Pepcid 20mg PO daily * DVT PPX: SCDs, Lovenox 40mg SC daily <Elias Mari - Last Filed: 05/28/17 15:13> Objective - Vital Signs/Intake and Output Vital Signs (last 24 hours): Temp Pulse Resp BP Pulse Ox 98.6 F 100 H 20 152/77 H 96 04/24/17 15:56 04/24/17 15:56 04/24/17 15:56 04/24/17 15:56 04/24/17 15:56 - Labs Labs: 04/24/17 07:46 04/24/17 07:46 PT 14.4 SECONDS (9.7-12.2) H 04/22/17 11:56 INR 1.3 04/22/17 11:56 APTT 29 SECONDS (21-34) 04/22/17 11:56 Attending/Attestation - Attestation I have personally seen and examined this patient.: Yes I have fully participated in the care of the patient.: Yes I have reviewed all pertinent clinical information, including history, physical exam and plan: Yes Notes (Text): RLL Pneumonia Code Sepsis DM .
--- NOTE | 2017-04-23 20:45 | CARD ---
APPROVED REPORT EKG Measurement Heart [id number] DC [id number] <Conclusion> Sinus tachycardia with frequent premature ventricular complexes Possible Left atrial enlargement Borderline ECG
[2017-04-24 01:45] VITALS: RESP 20
--- NOTE | 2017-04-24 04:35 | CON ---
INFECTIOUS DISEASE CONSULTATION REQUESTED BY: Dr. Jason George. HISTORY OF PRESENT ILLNESS: This patient is a 61-year-old male. He has history of diabetes. He came in with fever, chills, night sweats. He just recently came back from [place] and he complained of generalized body aches, fever, chills, night sweats and was coughing. He has a nonproductive cough. He has been with his daughter who also was been diagnosed with sinusitis and he also has schulte, he has been in the sun. He took his temperature, it was 102.3 and continued to feel the same way yesterday, hence he came to the emergency room. In the emergency room, he did complain of fever, chills and body aches, feeling weak. He said he has had pneumonia 4 years. He is a smoker. He stopped smoking 10 years ago. He used to smoke 1 pack per day for 30 years. He is also diabetic. He recently traveled to [place]. He denies any phlegm. He denies any history of asthma or emphysema. He is getting respiratory treatments. PAST MEDICAL HISTORY: As noted, he does have diabetes SURGICAL HISTORY: He has never had any surgery. ALLERGIES: HE HAS NO ALLERGIES. MEDICATIONS: He was started on Rocephin, Zithromax, aspirin, he is on albuterol and he is on Vasotec and Lovenox at this time, Pepcid and Novolin are for coverage. PHYSICAL EXAMINATION VITAL SIGNS: T-max is 99.2 today, pulse is 108, blood pressure 165/84, respirations are 20. HEENT: Head is atraumatic and normocephalic. Pupils are reacting to light. Throat, no congestion, no thrush seen. NECK: Supple. HEART: S1 and S2, tachycardic. LUNGS: Remain with decreased breath sounds. ABDOMEN: Soft and nontender. No guarding, no rigidity present. EXTREMITIES: No edema, clubbing, or cyanosis. LABORATORY DATA: His white count was 17.8 yesterday, today it is 14.3, hemoglobin 14.9, hematocrit 44, platelets count are 279. Sodium is 134, potassium 3.7, chlorides are 98 and anion gap is 15, BUN is 7, creatinine 0.6. Hemoglobin A1c is 11.1, so his sugars are really uncontrolled. They did an influenza swab which was negative, group B beta strep antigen was negative. Urine has 1+ ketones and glucose 3+, protein 2+, all problems there. Did had an ABG, ABG showed yesterday pH of 7.39, CO2 was 37, oxygen was 42.4, this is probably venous and glucose was 366, lactate level was before 2.3 and then it was 2.1. He had x-ray done. The chest x-ray showed right lower lobe infiltrate suggestive of pneumonia. IMPRESSION: My impression is that this patient came in with high fever, high WBC count and tachycardic, status post travel, history of smoking as well as diabetic, presented with pneumonia and his white count is coming down on present treatment. We also ordered test for urine for Legionella as well as urine for pneumococcal and we will follow and to repeat the labs tomorrow and if they continue to improve and he is not tachycardic and stable, and if the chest x-ray shows improvement in 1 to 2 days, then we will send him on oral antibiotics. We will follow. Lulu Kay MD
[2017-04-24 07:53] LABS: BASO # 0.1 K/uL (0.0-0.2); BASO % 0.7 % (0.0-2.0); EOS # 0.2 K/uL (0.0-0.7); EOS % 1.9 % (0.0-4.0); HEMATOCRIT 45.2 % (35.0-51.0); LYMPH # 2.6 K/uL (1.0-4.3); LYMPH % 22.8 % (20.0-40.0); MEAN CELL VOLUME 84.4 fL (80.0-94.0); MEAN CORPUSCULAR HEMOGLOBIN 28.1 pg (27.0-31.0); MEAN CORPUSCULAR HGB CONC 33.2 g/dL (33.0-37.0); MEAN PLATELET VOLUME 7.4 fL (7.2-11.7); RED CELL DISTRIBUTION WIDTH 14.2 % (11.5-14.5); WHITE BLOOD COUNT 11.3 K/uL (4.8-10.8)
[2017-04-24 08:02] LABS: CHLORIDE 98 mmol/L (98-107); SODIUM 136 mmol/L (132-148)
[2017-04-24 08:03] LABS: POTASSIUM 3.7 mmol/L (3.6-5.2)
[2017-04-24 08:05] LABS: ALKALINE PHOSPHATASE 98 U/L (38-126); ALT/SGPT 39 U/L (21-72); AST/SGOT 27 U/L (17-59); BILIRUBIN,TOTAL 0.8 mg/dL (0.2-1.3); BLOOD UREA NITROGEN 8 mg/dL (9-20); CARBON DIOXIDE 23 mmol/L (22-30); GFR AFRICAN-AMERICAN > 60; GLUCOSE,RANDOM 307 mg/dL (75-110)
[2017-04-24] MEDS: (Novolin R) Insulin Human Regular 100 units/ml vial SC SCH ×3 (08:55→17:20)
[2017-04-24] MEDS: Enoxaparin 40 mg Syringe SC SCH (09:10)
[2017-04-24] MEDS ORDERED: Pneumococcal 23-Valent Vaccine IM ONE ×2 (10:00→17:15)
[2017-04-24] MEDS: Azithromycin 500 MG in Sodium Chloride 0.9% 250 ML IVPB SCH (10:59)
--- NOTE | 2017-04-24 14:16 | CP.PCM.DIS ---
<Isidro Gale - Last Filed: 04/24/17 20:40> Provider - Provider Date of Admission: 04/22/17 13:59 Attending physician: Jason George MD Time Spent in preparation of Discharge (in minutes): 60 Hospital Course - Lab Results Lab Results: Most Recent Lab Values WBC 11.3 K/uL (4.8-10.8) H 04/24/17 07:46 RBC 5.36 Mil/uL (4.40-5.90) 04/24/17 07:46 Hgb 15.0 g/dL (12.0-18.0) 04/24/17 07:46 Hct 45.2 % (35.0-51.0) 04/24/17 07:46 MCV 84.4 fL (80.0-94.0) 04/24/17 07:46 MCH 28.1 pg (27.0-31.0) 04/24/17 07:46 MCHC 33.2 g/dL (33.0-37.0) 04/24/17 07:46 RDW 14.2 % (11.5-14.5) 04/24/17 07:46 Plt Count 347 K/uL (130-400) 04/24/17 07:46 MPV 7.4 fL (7.2-11.7) 04/24/17 07:46 Neut % (Auto) 65.6 % (50.0-75.0) 04/24/17 07:46 Lymph % (Auto) 22.8 % (20.0-40.0) 04/24/17 07:46 Island % (Auto) 9.0 % (0.0-10.0) 04/24/17 07:46 Eos % (Auto) 1.9 % (0.0-4.0) 04/24/17 07:46 Baso % (Auto) 0.7 % (0.0-2.0) 04/24/17 07:46 Neut # 7.4 K/uL (1.8-7.0) H 04/24/17 07:46 Lymph # 2.6 K/uL (1.0-4.3) 04/24/17 07:46 Island # 1.0 K/uL (0.0-0.8) H 04/24/17 07:46 Eos # 0.2 K/uL (0.0-0.7) 04/24/17 07:46 Baso # 0.1 K/uL (0.0-0.2) 04/24/17 07:46 Neutrophils % (Manual) 79 % (50-75) H 04/22/17 11:56 Band Neutrophils % 3 % (0-2) H 04/22/17 11:56 Lymphocytes % (Manual) 9 % (20-40) L 04/22/17 11:56 Monocytes % (Manual) 9 % (0-10) 04/22/17 11:56 Toxic Granulation Present 04/22/17 11:56 Platelet Estimate Normal (NORMAL) 04/22/17 11:56 Anisocytosis (manual) Slight 04/22/17 11:56 PT 14.4 SECONDS (9.7-12.2) H 04/22/17 11:56 INR 1.3 04/22/17 11:56 APTT 29 SECONDS (21-34) 04/22/17 11:56 pO2 21 mm/Hg (30-55) L 04/22/17 15:35 VBG pH 7.39 (7.32-7.43) 04/22/17 15:35 VBG pCO2 37 mmHg (40-60) L 04/22/17 15:35 VBG HCO3 21.5 mmol/L 04/22/17 15:35 VBG Total CO2 23.5 mmol/L (22-28) 04/22/17 15:35 VBG O2 Sat (Calc) 42.4 % (40-65) 04/22/17 15:35 VBG Base Excess -2.2 mmol/L (0.0-2.0) L 04/22/17 15:35 VBG Potassium 3.2 mmol/L (3.6-5.2) L 04/22/17 15:35 Sodium 137.0 mmol/l (132-148) 04/22/17 15:35 Chloride 103.0 mmol/L (98-107) 04/22/17 15:35 Glucose 301 mg/dl (75-110) H 04/22/17 15:35 Lactate 2.1 mmol/L (0.7-2.1) 04/22/17 15:35 Sodium 136 mmol/L (132-148) 04/24/17 07:46 Potassium 3.7 mmol/L (3.6-5.2) 04/24/17 07:46 Chloride 98 mmol/L (98-107) 04/24/17 07:46 Carbon Dioxide 23 mmol/L (22-30) 04/24/17 07:46 Anion Gap 18 (10-20) 04/24/17 07:46 BUN 8 mg/dL (9-20) L 04/24/17 07:46 Creatinine 0.6 MG/DL (0.8-1.5) L 04/24/17 07:46 Est GFR ( Amer) > 60 04/24/17 07:46 Est GFR (Non-Af Amer) > 60 04/24/17 07:46 POC Glucose (mg/dL) 348 mg/dL (65-110) H 04/24/17 10:53 Random Glucose 307 mg/dL (75-110) H 04/24/17 07:46 Hemoglobin A1c 11.1 % (4.2-6.5) H 04/23/17 06:22 Lactic Acid 2.7 mmol/L (0.7-2.1) H 04/22/17 19:41 Calcium 9.0 mg/dl (8.6-10.4) 04/24/17 07:46 Phosphorus 2.7 mg/dL (2.5-4.5) 04/22/17 11:56 Magnesium 1.6 mg/dL (1.6-2.3) 04/22/17 11:56 Total Bilirubin 0.8 mg/dL (0.2-1.3) 04/24/17 07:46 AST 27 U/L (17-59) 04/24/17 07:46 ALT 39 U/L (21-72) 04/24/17 07:46 Alkaline Phosphatase 98 U/L (38-126) 04/24/17 07:46 Troponin I < 0.0120 ng/mL (0.00-0.120) 04/22/17 11:56 Total Protein 7.0 g/dL (6.3-8.3) 04/24/17 07:46 Albumin 3.6 g/dL (3.5-5.0) 04/24/17 07:46 Globulin 3.4 gm/dL (2.2-3.9) 04/24/17 07:46 Albumin/Globulin Ratio 1.0 (1.0-2.1) 04/24/17 07:46 Triglycerides 204 mg/dL (0-149) H 04/23/17 06:22 Cholesterol 135 mg/dL (0-199) 04/23/17 06:22 LDL Cholesterol Direct 96 mg/dL (0-129) 04/23/17 06:22 HDL Cholesterol 19 mg/dL (30-70) L 04/23/17 06:22 Thyroxine (T4) 6.20 ug/dL (5.5-11.0) 04/22/17 11:56 TSH 3rd Generation 0.99 mIU/L (0.46-4.68) 04/22/17 11:56 Venous Blood Potassium 3.2 mmol/L (3.6-5.2) L 04/22/17 15:35 Urine Color Yellow (YELLOW) 04/22/17 12:15 Urine Clarity Clear (Clear) 04/22/17 12:15 Urine pH 6.0 (5.0-8.0) 04/22/17 12:15 Ur Specific Lafe 1.033 (1.003-1.030) H 04/22/17 12:15 Urine Protein 2+ mg/dL (NEGATIVE) H 04/22/17 12:15 Urine Glucose (UA) 3+ mg/dL (Normal) H 04/22/17 12:15 Urine Ketones 1+ mg/dL (NEGATIVE) H 04/22/17 12:15 Urine Blood Negative (NEGATIVE) 04/22/17 12:15 Urine Nitrate Negative (NEGATIVE) 04/22/17 12:15 Urine Bilirubin Negative (NEGATIVE) 04/22/17 12:15 Urine Urobilinogen Normal mg/dL (0.2-1.0) 04/22/17 12:15 Ur Leukocyte Esterase Neg Brandon/uL (Negative) 04/22/17 12:15 Urine WBC (Auto) 1 /hpf (0-5) 04/22/17 12:15 Urine RBC (Auto) 1 /hpf (0-3) 04/22/17 12:15 Ur Squamous Epith Cells < 1 /hpf (0-5) 04/22/17 12:15 Influenza Typ A,B (EIA) Negative for flu a/b (NEGATIVE) 04/22/17 11:34 Grp A Beta Strep Ag Negative (NEGATIVE) 04/22/17 11:34 - Hospital Course Hospital Course: Patient admitted in ED on 04/22/17 with fever, chills, night sweats, generalized body aches, and a nonproductive cough. Code Sepsis was called and Dr. Kay was consulted Patient had a chest xray on 04/22/17. It was found he had right lower lobe infiltrate suggestive of pneumonia. Patient was started on Rocephin and Azithromax on 04/22/17 Urine Analysis was ordered for legionella and blood cultures for mycoplasma, and strep pneumonia- all came back negative Due to patients history of HTN an EKG was performed on 04/22/17. It showed sinus tachycardia with frequent premature ventricular complexes with possible left atrial enlargement. Patients breathing problems resolved and was feeling much better. Will continue antibiotics on D/c - Date & Time of H&P Date of H&P: 04/22/17 Time of H&P: 14:07 Discharge Exam - Head Exam Head Exam: NORMAL INSPECTION, NORMOCEPHALIC - Eye Exam Eye Exam: EOMI - ENT Exam ENT Exam: Mucous Membranes Moist - Respiratory Exam Respiratory Exam: NORMAL BREATHING PATTERN, UNREMARKABLE - Cardiovascular Exam Cardiovascular Exam: REGULAR RHYTHM. absent: Diastolic murmur, Gallop, Systolic Murmur - GI/Abdominal Exam GI & Abdominal Exam: Normal Bowel Sounds, Soft. absent: Distended, Tenderness - Neurological Exam Neurological exam: Alert, Oriented x3 - Psychiatric Exam Psychiatric exam: Normal Affect, Normal Mood - Skin Skin Exam: Dry, Intact, Normal Color, Warm Discharge Plan - Discharge Medications Prescriptions: Clarithromycin [Clarithromycin ER] 500 mg PO DAILY #7 tab.er.24h Enalapril Maleate [Vasotec] 10 mg PO DAILY #30 tab Glimepiride [amaRYL] 4 mg PO BID #60 Sitagliptin Phos/Metformin HCl [Janumet 50-1,000 mg Tablet] 1 tab PO BID #60 - Follow Up Plan Condition: STABLE Disposition: HOME/ ROUTINE Instructions: Cefuroxime (By mouth), Enalapril (By mouth), Azithromycin (By mouth), Clarithromycin (By mouth), Glimepiride (By mouth), Atorvastatin (By mouth), Sitagliptin (By mouth), Sepsis (DC), Sepsis (GEN), Bacterial Pneumonia ( DC) Additional Instructions: Patient is medically stable and clear for discharge. Patient should follow up with his primary doctor within one weeks time. Prescription instructions will be provided at discharge. Patient should return to the ER if symptoms return. Patient agrees with the plan. Referrals: Jason George MD [Staff Provider] - Clinical Quality Measures - Date & Time of Discharge Summary Date of Discharge Summary: 04/24/17 Time of Discharge Summary: 20:44 <Elias Mari - Last Filed: 05/28/17 15:14> Provider - Provider Date of Admission: 04/22/17 13:59 Attending physician: Jason George MD Hospital Course - Lab Results Lab Results: Micro Results 04/24/17 14:13 Stool Stool Culture - Final NO SALMONELLA, SHIGELLA OR CAMPYLOBACTER ISOLATED. Most Recent Lab Values WBC 11.3 K/uL (4.8-10.8) H 04/24/17 07:46 RBC 5.36 Mil/uL (4.40-5.90) 04/24/17 07:46 Hgb 15.0 g/dL (12.0-18.0) 04/24/17 07:46 Hct 45.2 % (35.0-51.0) 04/24/17 07:46 MCV 84.4 fL (80.0-94.0) 04/24/17 07:46 MCH 28.1 pg (27.0-31.0) 04/24/17 07:46 MCHC 33.2 g/dL (33.0-37.0) 04/24/17 07:46 RDW 14.2 % (11.5-14.5) 04/24/17 07:46 Plt Count 347 K/uL (130-400) 04/24/17 07:46 MPV 7.4 fL (7.2-11.7) 04/24/17 07:46 Neut % (Auto) 65.6 % (50.0-75.0) 04/24/17 07:46 Lymph % (Auto) 22.8 % (20.0-40.0) 04/24/17 07:46 Island % (Auto) 9.0 % (0.0-10.0) 04/24/17 07:46 Eos % (Auto) 1.9 % (0.0-4.0) 04/24/17 07:46 Baso % (Auto) 0.7 % (0.0-2.0) 04/24/17 07:46 Neut # 7.4 K/uL (1.8-7.0) H 04/24/17 07:46 Lymph # 2.6 K/uL (1.0-4.3) 04/24/17 07:46 Island # 1.0 K/uL (0.0-0.8) H 04/24/17 07:46 Eos # 0.2 K/uL (0.0-0.7) 04/24/17 07:46 Baso # 0.1 K/uL (0.0-0.2) 04/24/17 07:46 Neutrophils % (Manual) 79 % (50-75) H 04/22/17 11:56 Band Neutrophils % 3 % (0-2) H 04/22/17 11:56 Lymphocytes % (Manual) 9 % (20-40) L 04/22/17 11:56 Monocytes % (Manual) 9 % (0-10) 04/22/17 11:56 Toxic Granulation Present 04/22/17 11:56 Platelet Estimate Normal (NORMAL) 04/22/17 11:56 Anisocytosis (manual) Slight 04/22/17 11:56 PT 14.4 SECONDS (9.7-12.2) H 04/22/17 11:56 INR 1.3 04/22/17 11:56 APTT 29 SECONDS (21-34) 04/22/17 11:56 pO2 21 mm/Hg (30-55) L 04/22/17 15:35 VBG pH 7.39 (7.32-7.43) 04/22/17 15:35 VBG pCO2 37 mmHg (40-60) L 04/22/17 15:35 VBG HCO3 21.5 mmol/L 04/22/17 15:35 VBG Total CO2 23.5 mmol/L (22-28) 04/22/17 15:35 VBG O2 Sat (Calc) 42.4 % (40-65) 04/22/17 15:35 VBG Base Excess -2.2 mmol/L (0.0-2.0) L 04/22/17 15:35 VBG Potassium 3.2 mmol/L (3.6-5.2) L 04/22/17 15:35 Sodium 137.0 mmol/l (132-148) 04/22/17 15:35 Chloride 103.0 mmol/L (98-107) 04/22/17 15:35 Glucose 301 mg/dl (75-110) H 04/22/17 15:35 Lactate 2.1 mmol/L (0.7-2.1) 04/22/17 15:35 Sodium 136 mmol/L (132-148) 04/24/17 07:46 Potassium 3.7 mmol/L (3.6-5.2) 04/24/17 07:46 Chloride 98 mmol/L (98-107) 04/24/17 07:46 Carbon Dioxide 23 mmol/L (22-30) 04/24/17 07:46 Anion Gap 18 (10-20) 04/24/17 07:46 BUN 8 mg/dL (9-20) L 04/24/17 07:46 Creatinine 0.6 MG/DL (0.8-1.5) L 04/24/17 07:46 Est GFR ( Amer) > 60 04/24/17 07:46 Est GFR (Non-Af Amer) > 60 04/24/17 07:46 POC Glucose (mg/dL) 293 mg/dL (65-110) H 04/24/17 16:45 Random Glucose 307 mg/dL (75-110) H 04/24/17 07:46 Hemoglobin A1c 11.1 % (4.2-6.5) H 04/23/17 06:22 Lactic Acid 2.7 mmol/L (0.7-2.1) H 04/22/17 19:41 Calcium 9.0 mg/dl (8.6-10.4) 04/24/17 07:46 Phosphorus 2.7 mg/dL (2.5-4.5) 04/22/17 11:56 Magnesium 1.6 mg/dL (1.6-2.3) 04/22/17 11:56 Total Bilirubin 0.8 mg/dL (0.2-1.3) 04/24/17 07:46 AST 27 U/L (17-59) 04/24/17 07:46 ALT 39 U/L (21-72) 04/24/17 07:46 Alkaline Phosphatase 98 U/L (38-126) 04/24/17 07:46 Troponin I < 0.0120 ng/mL (0.00-0.120) 04/22/17 11:56 Total Protein 7.0 g/dL (6.3-8.3) 04/24/17 07:46 Albumin 3.6 g/dL (3.5-5.0) 04/24/17 07:46 Globulin 3.4 gm/dL (2.2-3.9) 04/24/17 07:46 Albumin/Globulin Ratio 1.0 (1.0-2.1) 04/24/17 07:46 Triglycerides 204 mg/dL (0-149) H 04/23/17 06:22 Cholesterol 135 mg/dL (0-199) 04/23/17 06:22 LDL Cholesterol Direct 96 mg/dL (0-129) 04/23/17 06:22 HDL Cholesterol 19 mg/dL (30-70) L 04/23/17 06:22 Thyroxine (T4) 6.20 ug/dL (5.5-11.0) 04/22/17 11:56 TSH 3rd Generation 0.99 mIU/L (0.46-4.68) 04/22/17 11:56 Venous Blood Potassium 3.2 mmol/L (3.6-5.2) L 04/22/17 15:35 Urine Color Yellow (YELLOW) 04/22/17 12:15 Urine Clarity Clear (Clear) 04/22/17 12:15 Urine pH 6.0 (5.0-8.0) 04/22/17 12:15 Ur Specific Lafe 1.033 (1.003-1.030) H 04/22/17 12:15 Urine Protein 2+ mg/dL (NEGATIVE) H 04/22/17 12:15 Urine Glucose (UA) 3+ mg/dL (Normal) H 04/22/17 12:15 Urine Ketones 1+ mg/dL (NEGATIVE) H 04/22/17 12:15 Urine Blood Negative (NEGATIVE) 04/22/17 12:15 Urine Nitrate Negative (NEGATIVE) 04/22/17 12:15 Urine Bilirubin Negative (NEGATIVE) 04/22/17 12:15 Urine Urobilinogen Normal mg/dL (0.2-1.0) 04/22/17 12:15 Ur Leukocyte Esterase Neg Brandon/uL (Negative) 04/22/17 12:15 Urine WBC (Auto) 1 /hpf (0-5) 04/22/17 12:15 Urine RBC (Auto) 1 /hpf (0-3) 04/22/17 12:15 Ur Squamous Epith Cells < 1 /hpf (0-5) 04/22/17 12:15 Stool Leukocytes, Qual Negative (NEGATIVE) 04/24/17 14:13 C. difficile Ag & Toxin Negative (NEGATIVE) 04/24/17 14:13 Influenza Typ A,B (EIA) Negative for flu a/b (NEGATIVE) 04/22/17 11:34 Grp A Beta Strep Ag Negative (NEGATIVE) 04/22/17 11:34 Ur Strep pneumoniae Ag Not detected 04/24/17 08:10 Attending/Attestation - Attestation I have personally seen and examined this patient.: Yes I have fully participated in the care of the patient.: Yes I have reviewed all pertinent clinical information, including history, physical exam and plan: Yes Notes (Text): Pneumonia
[2017-04-24 15:59] VITALS: BP 152/77; PULSE 100; TEMP 98.6; O2SAT 96
[2017-04-25] MEDS ORDERED: Pneumococcal 23-Valent Vaccine IM ONE (10:00)
== END 2017-04-24 17:55 | disposition home or self-care (01) | DRG 195 ==
LOC: C.ER 11:05 → C.9E 13:59 → C.5T 20:37
PROVIDERS: ADMIT Family Medicine; ATTEND Family Medicine
DX: J18.9 Pneumonia, unspecified organism (principal); E11.65 Type 2 diabetes mellitus with hyperglycemia; I10 Essential (primary) hypertension; Z79.4 Long term (current) use of insulin; Z86.73 Personal history of transient ischemic attack (TIA), and cerebral infarction without residual deficits; Z87.891 Personal history of nicotine dependence; I49.3 Ventricular premature depolarization

== ENCOUNTER 2017-12-12 16:10 | Inpatient (IN) | payer OTHER ==
[2017-12-12 16:27] VITALS: BMI 34.0
[2017-12-12] MEDS ORDERED: Sodium Chloride 0.9% 1,000 ML IV ONE ×2 (17:03→18:37)
--- NOTE | 2017-12-12 17:06 | C.PDOC ---
History Of Present Illness 62 y/o male with history of DM presents to ED with complaints of fever and cough for "few days". Patient states last took Tylenol at 1pm today and currently denies nausea, vomiting, sob, chest pain or any other complaints at this time. Time Seen by Provider: 12/12/17 16:58 Chief Complaint (Nursing): Fever History Per: Patient History/Exam Limitations: no limitations Onset/Duration Of Symptoms: Days Current Symptoms Are (Timing): Still Present Associated Symptoms: Fever, Cough Severity: Mild Past Medical History Reviewed: Historical Data, Nursing Documentation, Vital Signs Vital Signs: Last Vital Signs Temp 99.7 F H 12/12/17 18:31 Pulse 132 H 12/12/17 18:31 Resp 16 12/12/17 18:31 BP 101/56 L 12/12/17 18:31 Pulse Ox 98 12/12/17 18:45 - Medical History PMH: Diabetes, HTN, Pneumonia, TIA (2014; NO RESIDUAL WEAKNESS) Surgical History: No Surg Hx Family History: States: No Known Family Hx - Social History Hx Tobacco Use: No Hx Alcohol Use: No Hx Substance Use: No - Immunization History Hx Tetanus Toxoid Vaccination: No Hx Influenza Vaccination: Yes Hx Pneumococcal Vaccination: Yes Review Of Systems Constitutional: Positive for: Fever Cardiovascular: Negative for: Chest Pain Respiratory: Positive for: Cough. Negative for: Shortness of Breath Gastrointestinal: Negative for: Nausea, Vomiting Skin: Negative for: Rash Physical Exam - Physical Exam Appears: Non-toxic, No Acute Distress Skin: Warm, Dry, No Rash Head: Atraumatic, Normacephalic Eye(s): bilateral: Normal Inspection Ear(s): Bilateral: Normal Oral Mucosa: Moist Throat: Normal, No Erythema, No Exudate Neck: Supple Cardiovascular: Rhythm Regular, Other (Tachycardic) Respiratory: No Rales, Rhonchi (bilaterally), No Wheezing Gastrointestinal/Abdominal: Soft, No Tenderness, No Guarding, No Rebound Extremity: No Pedal Edema, Capillary Refill (<2 seconds) Neurological/Psych: Oriented x3, Normal Speech ED Course And Treatment - Laboratory Results Result Diagrams: 12/12/17 17:34 12/12/17 17:34 Lab Interpretation: Abnormal ECG: Interpreted By Me ECG Rhythm: Sinus Tachycardia ECG Interpretation: No Acute Changes Rate From EC O2 Sat by Pulse Oximetry: 98 (RA) Pulse Ox Interpretation: Normal - Radiology CXR: Interpreted by Me CXR Interpretation: Yes: No Acute Disease Progress Note: CXR, Blood work, Flu test ordered. Neb treatment and IV fluids administered. Treated with tylenol. 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 - Scribe Statement The provider has reviewed the documentation as recorded by the Meghannibsri Shaikh All medical record entries made by the Meghannibsri were at my direction and personally dictated by me. I have reviewed the chart and agree that the record accurately reflects my personal performance of the history, physical exam, medical decision making, and the department course for this patient. I have also personally directed, reviewed, and agree with the discharge instructions and disposition.
[2017-12-12] MEDS: Albuterol-Ipratrop 3 mg / 0.5 (3 ml) UD IH SCH ×3 (17:15→17:42)
[2017-12-12] MEDS ORDERED: Albuterol 0.042% Inhal Sol (1.25 mg/3 mL) UD IH SCH (17:15)
[2017-12-12] MEDS ORDERED: Albuterol-Ipratrop 3 mg / 0.5 (3 ml) UD ONE (17:29)
[2017-12-12 17:44] LABS: HEMOGLOBIN 15.5 g/dL (12.0-18.0); LYMPH # 0.5 K/uL (1.0-4.3); LYMPH % 3.3 % (20.0-40.0); MEAN CORPUSCULAR HEMOGLOBIN 29.1 pg (27.0-31.0); MEAN CORPUSCULAR HGB CONC 34.6 g/dL (33.0-37.0); MEAN PLATELET VOLUME 7.6 fL (7.2-11.7); MONO # 0.8 K/uL (0.0-0.8); MONO % 5.2 % (0.0-10.0); NEUT # 14.8 K/uL (1.8-7.0); NEUT % 91.5 % (50.0-75.0); PLATELET COUNT 284 K/uL (130-400); RBC 5.33 Mil/uL (4.40-5.90); RED CELL DISTRIBUTION WIDTH 13.7 % (11.5-14.5); WHITE BLOOD COUNT 16.2 K/uL (4.8-10.8)
[2017-12-12 17:47] LABS: URINE BILIRUBIN NEGATIVE (NEGATIVE); URINE BLOOD 1+ (NEGATIVE); URINE CLARITY Clear (Clear); URINE COLOR Yellow (YELLOW); URINE GLUCOSE (UA) 3+ mg/dL (Normal); URINE LEUKOCYTE ESTERASE NEG Leu/uL (Negative); URINE PROTEIN 2+ mg/dL (NEGATIVE); URINE UROBILINOGEN NORMAL mg/dL (0.2-1.0)
[2017-12-12 17:51] LABS: ALB/GLOB RATIO 1.3 (1.0-2.1); ALBUMIN 4.2 g/dL (3.5-5.0); ALT/SGPT 98 U/L (21-72); AST/SGOT 63 U/L (17-59); BLOOD UREA NITROGEN 9 mg/dL (9-20); CALCIUM 8.7 mg/dl (8.6-10.4); GFR AFRICAN-AMERICAN > 60; GFR NON-AFRICAN AMERICAN > 60; LIPASE 104 U/L (23-300)
[2017-12-12 18:00] LABS: B-TYPE NATRIURETIC PEPTIDE 54.6 pg/mL (0-900)
[2017-12-12] MEDS ORDERED: cefTRIAXone IV 1 gm in Dextros 50 ML IV ONE (18:43)
--- NOTE | 2017-12-12 18:57 | RAD ---
HISTORY: SOB COMPARISON: Comparison chest dated 04/22/2017 TECHNIQUE: Chest PA and lateral FINDINGS: LUNGS: Increased/ course and interstitial markings most notably affecting the mid to lower lung zones. Findings could represent sequela of reactive/inflammatory airway disease or viral illness however mild mild bibasilar atelectasis may contribute. Clinical correlation recommended. PLEURA: No significant pleural effusion identified. No pneumothorax apparent. CARDIOVASCULAR: Normal. OSSEOUS STRUCTURES: No significant abnormalities. VISUALIZED UPPER ABDOMEN: Normal. OTHER FINDINGS: None. IMPRESSION: Increased/ course and interstitial markings most notably affecting the mid to lower lung zones. Findings could represent sequela of reactive/inflammatory airway disease or viral illness however mild mild bibasilar atelectasis may contribute. Clinical correlation recommended.
[2017-12-12] MEDS ORDERED: Sodium Chloride 0.9% 250 ML IV ONE (19:19)
[2017-12-12] MEDS ORDERED: cefTRIAXone IV 1 gm in Dextros 50 ML IVPB ONE (19:19)
[2017-12-12 19:32] LABS: BANDS 12 % (0-2); LYMPHOCYTE 3 % (20-40); MONOCYTE 8 % (0-10); NEUTROPHIL 77 % (50-75); PLATELET ESTIMATE NORMAL (NORMAL); TOTAL CELLS COUNTED 100
[2017-12-12] MEDS: (Novolog) Insulin Aspart, Recombinant 100 u/ml 10 ml vial SC SCH (21:53)
--- NOTE | 2017-12-12 23:46 | CP.PCM.HP ---
History of Present Illness - History of Present Illness History of Present Illness: History Of Present Illness 62 y/o male with history of DM presents to ED with complaints of fever and cough for "few days". Patient states last took Tylenol at 1pm today and currently denies nausea, vomiting, sob, chest pain or any other complaints at this time. Past Patient History - Past Medical History & Family History Past Medical History?: Yes - Past Social History Smoking Status: Former Smoker - CARDIAC Hx Hypertension: Yes - PULMONARY Hx Pneumonia: Yes - NEUROLOGICAL Hx Transient Ischemic Attacks (TIA): Yes (2014; NO RESIDUAL WEAKNESS) - HEENT Hx HEENT Problems: No - RENAL Hx Chronic Kidney Disease: No - ENDOCRINE/METABOLIC Hx Endocrine Disorders: Yes Hx Diabetes Mellitus Type 2: Yes - HEMATOLOGICAL/ONCOLOGICAL Hx Blood Disorders: No Hx Blood Transfusions: No - INTEGUMENTARY Hx Dermatological Problems: No - MUSCULOSKELETAL/RHEUMATOLOGICAL Hx Falls: No Hx Fractures: No - GASTROINTESTINAL Hx Gastrointestinal Disorders: No - GENITOURINARY/GYNECOLOGICAL Hx Genitourinary Disorders: No - PSYCHIATRIC Hx Substance Use: No - SURGICAL HISTORY Hx Surgeries: No - ANESTHESIA Hx Anesthesia: No Hx Anesthesia Reactions: No Hx Malignant Hyperthermia: No Has any member of the family had a problem w/ anesthesia?: No Meds Allergies/Adverse Reactions: Allergies Allergy/AdvReac Type Severity Reaction Status Date / Time No Known Allergies Allergy Verified 04/22/17 11:09 Results - Vital Signs Recent Vital Signs: Last Vital Signs Temp 99.2 F 12/12/17 20:35 Pulse 94 H 12/12/17 20:35 Resp 20 12/12/17 20:35 BP 123/76 12/12/17 20:35 Pulse Ox 99 12/12/17 20:35 - Labs Result Diagrams: 12/12/17 17:34 12/12/17 17:34 Labs: Laboratory Results - last 24 hr 12/12/17 12/12/17 12/12/17 17:04 17:34 17:34 WBC 16.2 H RBC 5.33 Hgb 15.5 Hct 44.8 MCV 84.0 MCH 29.1 MCHC 34.6 RDW 13.7 Plt Count 284 MPV 7.6 Neut % (Auto) 91.5 H Lymph % (Auto) 3.3 L [place] % (Auto) 5.2 Eos % (Auto) 0.0 Baso % (Auto) 0.0 Neut # (Auto) 14.8 H Lymph # (Auto) 0.5 L [place] # (Auto) 0.8 Eos # (Auto) 0.0 Baso # (Auto) 0.0 Neutrophils % (Manual) 77 H Band Neutrophils % 12 H* Lymphocytes % (Manual) 3 L Monocytes % (Manual) 8 Platelet Estimate Normal Sodium Potassium Chloride Carbon Dioxide Anion Gap BUN Creatinine Est GFR ( Amer) Est GFR (Non-Af Amer) POC Glucose (mg/dL) Random Glucose Calcium Total Bilirubin AST ALT Alkaline Phosphatase NT-Pro-B Natriuret Pep Total Protein Albumin Globulin Albumin/Globulin Ratio Lipase Urine Color Yellow Urine Clarity Clear Urine pH 5.0 Ur Specific [place] 1.032 H Urine Protein 2+ H Urine Glucose (UA) 3+ H Urine Ketones 1+ H Urine Blood 1+ H Urine Nitrate Negative Urine Bilirubin Negative Urine Urobilinogen Normal Ur Leukocyte Esterase Neg Urine WBC (Auto) 1 Urine RBC (Auto) < 1 Influenza Typ A,B (EIA) Pos for influenza b H 12/12/17 12/12/17 17:34 20:42 WBC RBC Hgb Hct MCV MCH MCHC RDW Plt Count MPV Neut % (Auto) Lymph % (Auto) [place] % (Auto) Eos % (Auto) Baso % (Auto) Neut # (Auto) Lymph # (Auto) [place] # (Auto) Eos # (Auto) Baso # (Auto) Neutrophils % (Manual) Band Neutrophils % Lymphocytes % (Manual) Monocytes % (Manual) Platelet Estimate Sodium 134 Potassium 3.9 Chloride 97 L Carbon Dioxide 21 L Anion Gap 20 BUN 9 Creatinine 0.8 Est GFR ( Amer) > 60 Est GFR (Non-Af Amer) > 60 POC Glucose (mg/dL) 373 H Random Glucose 343 H Calcium 8.7 Total Bilirubin 1.1 AST 63 H ALT 98 H D Alkaline Phosphatase 70 NT-Pro-B Natriuret Pep 54.6 Total Protein 7.5 Albumin 4.2 Globulin 3.3 Albumin/Globulin Ratio 1.3 Lipase 104 Urine Color Urine Clarity Urine pH Ur Specific [place] Urine Protein Urine Glucose (UA) Urine Ketones Urine Blood Urine Nitrate Urine Bilirubin Urine Urobilinogen Ur Leukocyte Esterase Urine WBC (Auto) Urine RBC (Auto) Influenza Typ A,B (EIA)
[2017-12-13] MEDS: Albuterol-Ipratrop 3 mg / 0.5 (3 ml) UD INH SCH ×4 (06:10→19:21)
[2017-12-13] MEDS: (Novolog) Insulin Aspart, Recombinant 100 u/ml 10 ml vial SC SCH ×4 (08:30→22:27)
[2017-12-13] MEDS ORDERED: Home Med 1 UNIT (Sitagliptin Phos/Metformin Hcl [Janumet 50-1,000 Mg Tablet] 1 TAB) PO SCH (10:00)
[2017-12-13] MEDS: Azithromycin 500 MG in Sodium Chloride 0.9% 250 ML IVPB SCH (10:12)
[2017-12-13] MEDS: Enoxaparin 40 mg Syringe SC SCH ×2 (10:55)
[2017-12-13] MEDS: guaiFENesin 600 mg ER Tab PO SCH ×2 (10:58→18:17)
[2017-12-13 11:10] LABS: BASO % 0.4 % (0.0-2.0); HEMOGLOBIN 14.9 g/dL (12.0-18.0); LYMPH % 18.2 % (20.0-40.0); MEAN CELL VOLUME 84.3 fL (80.0-94.0); MEAN CORPUSCULAR HEMOGLOBIN 29.3 pg (27.0-31.0); MEAN CORPUSCULAR HGB CONC 34.7 g/dL (33.0-37.0); MEAN PLATELET VOLUME 7.5 fL (7.2-11.7); MONO # 1.2 K/uL (0.0-0.8); MONO % 10.6 % (0.0-10.0); NEUT # 7.9 K/uL (1.8-7.0); NEUT % 70.8 % (50.0-75.0); RBC 5.08 Mil/uL (4.40-5.90); RED CELL DISTRIBUTION WIDTH 14.2 % (11.5-14.5); WHITE BLOOD COUNT 11.2 K/uL (4.8-10.8)
[2017-12-13 16:17] VITALS: RESP 20
--- NOTE | 2017-12-13 23:18 | CP.PCM.PN ---
Subjective - Date & Time of Evaluation Date of Evaluation: 12/13/17 Time of Evaluation: 17:00 - Subjective Subjective: Pt seen and examined at bedside, fever has resolved Objective - Vital Signs/Intake and Output Vital Signs (last 24 hours): Temp Pulse Resp BP Pulse Ox 98.5 F 115 H 20 122/68 97 12/13/17 15:00 12/13/17 15:00 12/13/17 15:00 12/13/17 15:00 12/13/17 15:00 Intake and Output: 12/13/17 12/14/17 18:59 06:59 Intake Total 350 Balance 350 - Medications Medications: Current Medications Albuterol/Ipratropium (Duoneb 3 Mg/0.5 Mg (3 Ml) Ud) 3 ml INH RQ6 COUNT [facility]CLUDES [facility] Last Admin: 12/13/17 19:21 Dose: 3 ml Aspirin (Aspirin Chewable) 81 mg PO DAILY COUNT INCLUDES [facility] Last Admin: 12/13/17 10:55 Dose: 81 mg Enalapril Maleate (Vasotec) 10 mg PO DAILY COUNT INCLUDES THE [facility] Last Admin: 12/13/17 10:55 Dose: 10 mg Enoxaparin Sodium (Lovenox) 40 mg SC DAILY COUNT INCLUDES [facility] Last Admin: 12/13/17 10:55 Dose: Not Given Gabapentin (Neurontin) 100 mg PO BID COUNT INCLUDES [facility] Last Admin: 12/13/17 18:17 Dose: 100 mg Glimepiride (Amaryl) 4 mg PO BID COUNT INCLUDES THE [facility] Last Admin: 12/13/17 18:16 Dose: 4 mg Guaifenesin (Mucinex [place]) 600 mg PO BID COUNT INCLUDES THE [facility] Last Admin: 12/13/17 18:17 Dose: 600 mg Azithromycin 500 mg/ Sodium (Chloride) 250 mls @ 250 mls/hr IVPB DAILY COUNT INCLUDES THE [facility] PRN Reason: Protocol Last Admin: 12/13/17 10:12 Dose: 250 mls/hr Ceftriaxone Sodium 1 gm/ (Sodium Chloride) 100 mls @ 100 mls/hr IVPB DAILY COUNT INCLUDES THE [facility] PRN Reason: Protocol Last Admin: 12/13/17 09:30 Dose: 100 mls/hr Insulin Aspart (Novolog) 0 unit SC ACHS COUNT INCLUDES THE [facility] PRN Reason: Protocol Last Admin: 12/13/17 22:27 Dose: Not Given Metformin HCl (Glucophage) 1,000 mg PO BID COUNT INCLUDES THE [facility] Last Admin: 12/13/17 18:17 Dose: 1,000 mg Oseltamivir Phosphate (Tamiflu Cap) 75 mg PO BID COUNT INCLUDES THE [facility] PRN Reason: Protocol Stop: 12/18/17 04:25 Last Admin: 12/13/17 18:18 Dose: 75 mg Rosuvastatin Calcium (Crestor) 10 mg PO [facility] Last Admin: 12/13/17 22:28 Dose: 10 mg Sitagliptin Phosphate (Januvia) 50 mg PO BID COUNT INCLUDES THE [facility] Last Admin: 12/13/17 18:17 Dose: 50 mg - Labs Labs: 12/13/17 11:02 12/12/17 17:34
[2017-12-14] MEDS: Albuterol-Ipratrop 3 mg / 0.5 (3 ml) UD INH SCH ×3 (02:03→13:11)
[2017-12-14 06:43] LABS: BASO % 0.4 % (0.0-2.0); EOS # 0.1 K/uL (0.0-0.7); EOS % 0.8 % (0.0-4.0); LYMPH # 2.6 K/uL (1.0-4.3); LYMPH % 28.4 % (20.0-40.0); MEAN CELL VOLUME 84.5 fL (80.0-94.0); MEAN CORPUSCULAR HEMOGLOBIN 29.8 pg (27.0-31.0); MEAN CORPUSCULAR HGB CONC 35.2 g/dL (33.0-37.0); MEAN PLATELET VOLUME 7.8 fL (7.2-11.7); MONO # 0.8 K/uL (0.0-0.8); MONO % 8.8 % (0.0-10.0); NEUT # 5.5 K/uL (1.8-7.0); NEUT % 61.6 % (50.0-75.0); RBC 5.36 Mil/uL (4.40-5.90); RED CELL DISTRIBUTION WIDTH 14.3 % (11.5-14.5)
[2017-12-14 06:52] LABS: BLOOD UREA NITROGEN 11 mg/dL (9-20); CALCIUM 8.4 mg/dl (8.6-10.4); GFR AFRICAN-AMERICAN > 60; GFR NON-AFRICAN AMERICAN > 60
--- NOTE | 2017-12-14 07:53 | CARD ---
APPROVED REPORT EKG Measurement Heart [id number] <Conclusion> Sinus tachycardia Possible Left atrial enlargement Borderline ECG
[2017-12-14 08:02] VITALS: O2SAT 95
[2017-12-14] MEDS: (Novolog) Insulin Aspart, Recombinant 100 u/ml 10 ml vial SC SCH ×3 (08:30→16:55)
[2017-12-14] MEDS: guaiFENesin 600 mg ER Tab PO SCH ×2 (09:43→17:07)
[2017-12-14] MEDS: Enoxaparin 40 mg Syringe SC SCH ×2 (09:43→10:53)
[2017-12-14] MEDS: Azithromycin 500 MG in Sodium Chloride 0.9% 250 ML IVPB SCH (09:47)
--- NOTE | 2017-12-14 16:01 | CP.PCM.PN ---
Subjective - Date & Time of Evaluation Date of Evaluation: 12/14/17 Time of Evaluation: 11:35 - Subjective Subjective: Patient seen and examined today, states feels much better today. denies any fever, chills, cough or congestion, abd. pain N/V a febrile x 48 hrs Objective - Vital Signs/Intake and Output Vital Signs (last 24 hours): Temp Pulse Resp BP Pulse Ox 97.9 F 98 H 20 134/80 95 12/14/17 07:40 12/14/17 07:40 12/14/17 07:40 12/14/17 09:43 12/14/17 07:40 Intake and Output: 12/14/17 12/14/17 06:59 18:59 Intake Total 480 Balance 480 - Medications Medications: Current Medications Albuterol/Ipratropium (Duoneb 3 Mg/0.5 Mg (3 Ml) Ud) 3 ml INH RQ6 [facility] Last Admin: 12/14/17 13:11 Dose: 3 ml Aspirin (Aspirin Chewable) 81 mg PO DAILY [facility] Last Admin: 12/14/17 09:42 Dose: 81 mg Enalapril Maleate (Vasotec) 10 mg PO DAILY [facility] Last Admin: 12/14/17 09:43 Dose: 10 mg Enoxaparin Sodium (Lovenox) 40 mg SC DAILY [facility] Last Admin: 12/14/17 10:53 Dose: Not Given Gabapentin (Neurontin) 100 mg PO BID [facility] Last Admin: 12/14/17 09:43 Dose: 100 mg Glimepiride (Amaryl) 4 mg PO BID [facility] Last Admin: 12/14/17 10:58 Dose: 4 mg Guaifenesin (Mucinex La) 600 mg PO BID [facility] Last Admin: 12/14/17 09:43 Dose: 600 mg Azithromycin 500 mg/ Sodium (Chloride) 250 mls @ 250 mls/hr IVPB DAILY [facility] PRN Reason: Protocol Last Admin: 12/14/17 09:47 Dose: 250 mls/hr Ceftriaxone Sodium 1 gm/ (Sodium Chloride) 100 mls @ 100 mls/hr IVPB DAILY [facility] PRN Reason: Protocol Last Admin: 12/14/17 10:58 Dose: 100 mls/hr Insulin Aspart (Novolog) 0 unit SC ACHS [facility] PRN Reason: Protocol Last Admin: 12/14/17 12:17 Dose: 4 unit Metformin HCl (Glucophage) 1,000 mg PO BID [facility] Last Admin: 12/14/17 09:45 Dose: 1,000 mg Oseltamivir Phosphate (Tamiflu Cap) 75 mg PO BID [facility] PRN Reason: Protocol Stop: 12/18/17 04:25 Last Admin: 12/14/17 09:42 Dose: 75 mg Rosuvastatin Calcium (Crestor) 10 mg PO HS [facility] Last Admin: 12/13/17 22:28 Dose: 10 mg Sitagliptin Phosphate (Januvia) 50 mg PO BID [facility] Last Admin: 12/14/17 09:43 Dose: 50 mg - Labs Labs: 12/14/17 06:23 12/14/17 06:23 - Constitutional Appears: Well, No Acute Distress - Respiratory Exam Respiratory Exam: Clear to Ausculation Bilateral, NORMAL BREATHING PATTERN - Cardiovascular Exam Cardiovascular Exam: REGULAR RHYTHM, +S2 - Neurological Exam Neurological Exam: Alert, Awake, Oriented x3 Assessment and Plan - Assessment and Plan (Free Text) Assessment: A/P 62 yr old male admitted with fever / flu B+ a febrile for 48 hrs labs- wnl patient started on tamiflu and improved D/W Dr. Parekh. stable for discharge home today and f/u with Dr. Parekh office /PMD in 5 days Discharge plan discussed with patient who understands and agrees with plan
[2017-12-14 16:43] VITALS: BP 121/76; PULSE 107; TEMP 98
--- NOTE | 2017-12-14 22:51 | CP.PCM.DIS ---
Provider - Provider Date of Admission: 12/12/17 18:38 Attending physician: Atul Parekh MD Hospital Course - Lab Results Lab Results: Micro Results 12/12/17 19:00 Blood Blood Culture - Preliminary NO GROWTH AFTER 48 HOURS 12/12/17 19:00 Blood Blood Culture - Preliminary NO GROWTH AFTER 48 HOURS Most Recent Lab Values WBC 9.0 K/uL (4.8-10.8) 12/14/17 06:23 RBC 5.36 Mil/uL (4.40-5.90) 12/14/17 06:23 Hgb 16.0 g/dL (12.0-18.0) 12/14/17 06:23 Hct 45.3 % (35.0-51.0) 12/14/17 06:23 MCV 84.5 fL (80.0-94.0) 12/14/17 06:23 MCH 29.8 pg (27.0-31.0) 12/14/17 06:23 MCHC 35.2 g/dL (33.0-37.0) 12/14/17 06:23 RDW 14.3 % (11.5-14.5) 12/14/17 06:23 Plt Count 225 K/uL (130-400) 12/14/17 06:23 MPV 7.8 fL (7.2-11.7) 12/14/17 06:23 Neut % (Auto) 61.6 % (50.0-75.0) 12/14/17 06:23 Lymph % (Auto) 28.4 % (20.0-40.0) 12/14/17 06:23 [place] % (Auto) 8.8 % (0.0-10.0) 12/14/17 06:23 Eos % (Auto) 0.8 % (0.0-4.0) 12/14/17 06:23 Baso % (Auto) 0.4 % (0.0-2.0) 12/14/17 06:23 Neut # (Auto) 5.5 K/uL (1.8-7.0) 12/14/17 06:23 Lymph # (Auto) 2.6 K/uL (1.0-4.3) 12/14/17 06:23 [place] # (Auto) 0.8 K/uL (0.0-0.8) 12/14/17 06:23 Eos # (Auto) 0.1 K/uL (0.0-0.7) 12/14/17 06:23 Baso # (Auto) 0.0 K/uL (0.0-0.2) 12/14/17 06:23 Neutrophils % (Manual) 77 % (50-75) H 12/12/17 17:34 Band Neutrophils % 12 % (0-2) H* 12/12/17 17:34 Lymphocytes % (Manual) 3 % (20-40) L 12/12/17 17:34 Monocytes % (Manual) 8 % (0-10) 12/12/17 17:34 Platelet Estimate Normal (NORMAL) 12/12/17 17:34 Sodium 135 mmol/L (132-148) 12/14/17 06:23 Potassium 4.2 mmol/L (3.6-5.2) 12/14/17 06:23 Chloride 99 mmol/L (98-107) 12/14/17 06:23 Carbon Dioxide 25 mmol/L (22-30) 12/14/17 06:23 Anion Gap 16 (10-20) 12/14/17 06:23 BUN 11 mg/dL (9-20) 12/14/17 06:23 Creatinine 0.7 mg/dL (0.8-1.5) L 12/14/17 06:23 Est GFR ( Amer) > 60 12/14/17 06:23 Est GFR (Non-Af Amer) > 60 12/14/17 06:23 POC Glucose (mg/dL) 245 mg/dL (65-110) H 12/14/17 15:50 Random Glucose 276 mg/dL (75-110) H 12/14/17 06:23 Calcium 8.4 mg/dl (8.6-10.4) L 12/14/17 06:23 Total Bilirubin 1.1 mg/dL (0.2-1.3) 12/12/17 17:34 AST 63 U/L (17-59) H 12/12/17 17:34 ALT 98 U/L (21-72) H D 12/12/17 17:34 Alkaline Phosphatase 70 U/L (38-126) 12/12/17 17:34 NT-Pro-B Natriuret Pep 54.6 pg/mL (0-900) 12/12/17 17:34 Total Protein 7.5 g/dL (6.3-8.3) 12/12/17 17:34 Albumin 4.2 g/dL (3.5-5.0) 12/12/17 17:34 Globulin 3.3 gm/dL (2.2-3.9) 12/12/17 17:34 Albumin/Globulin Ratio 1.3 (1.0-2.1) 12/12/17 17:34 Lipase 104 U/L (23-300) 12/12/17 17:34 Urine Color Yellow (YELLOW) 12/12/17 17:34 Urine Clarity Clear (Clear) 12/12/17 17:34 Urine pH 5.0 (5.0-8.0) 12/12/17 17:34 Ur Specific [place] 1.032 (1.003-1.030) H 12/12/17 17:34 Urine Protein 2+ mg/dL (NEGATIVE) H 12/12/17 17:34 Urine Glucose (UA) 3+ mg/dL (Normal) H 12/12/17 17:34 Urine Ketones 1+ mg/dL (NEGATIVE) H 12/12/17 17:34 Urine Blood 1+ (NEGATIVE) H 12/12/17 17:34 Urine Nitrate Negative (NEGATIVE) 12/12/17 17:34 Urine Bilirubin Negative (NEGATIVE) 12/12/17 17:34 Urine Urobilinogen Normal mg/dL (0.2-1.0) 12/12/17 17:34 Ur Leukocyte Esterase Neg [place]/uL (Negative) 12/12/17 17:34 Urine WBC (Auto) 1 /hpf (0-5) 12/12/17 17:34 Urine RBC (Auto) < 1 /hpf (0-3) 12/12/17 17:34 Influenza Typ A,B (EIA) Pos for influenza b (NEGATIVE) H 12/12/17 17:04 - Hospital Course Hospital Course: A/P 62 yr old male admitted with fever / flu B+ a febrile for 48 hrs labs- wnl patient started on tamiflu and improved Pt is stable for discharge home today and f/u with me out patient in 5 days Discharge plan discussed with patient who understands and agrees with plan Discharge Plan - Discharge Medications Prescriptions: Oseltamivir [Tamiflu Cap] 75 mg PO Q12 #7 cap - Follow Up Plan Condition: STABLE Disposition: HOME/ ROUTINE Instructions: Heart Healthy Diet, Flu, Adult (DC), Fever, Adult (DC), Oseltamivir Additional Instructions: Please follow up with Dr. Parekh office PMD after completion of tamiflu Continue tamiflu as prescribed resume all home medication Referrals: Atul Parekh MD [Staff Provider] -
== END 2017-12-14 19:14 | disposition home or self-care (01) | DRG 69 ==
LOC: C.ER 16:10 → C.9E 18:38 → C.6T 19:28
PROVIDERS: ADMIT Internal Medicine; ATTEND Internal Medicine
DX: J10.1 Influenza due to other identified influenza virus with other respiratory manifestations (principal); E11.9 Type 2 diabetes mellitus without complications; I10 Essential (primary) hypertension; Z86.73 Personal history of transient ischemic attack (TIA), and cerebral infarction without residual deficits; Z87.891 Personal history of nicotine dependence; Z79.4 Long term (current) use of insulin

== ENCOUNTER 2019-01-02 10:03 | Emergency (ER) | payer OTHER ==
[2019-01-02 10:03] VITALS: BMI 34.0
[2019-01-02 10:13] VITALS: RESP 18
[2019-01-02] MEDS ORDERED: Sodium Chloride 0.9% 1,000 ML IV ONE (10:39)
[2019-01-02 11:38] LABS: BASO # 0.1 K/uL (0.0-0.2); BASO % 0.7 % (0.0-2.0); EOS # 0.1 K/uL (0.0-0.7); HEMOGLOBIN 17.3 g/dL (12.0-18.0); LYMPH # 2.5 K/uL (1.0-4.3); LYMPH % 24.4 % (20.0-40.0); MEAN CELL VOLUME 86.5 fL (80.0-94.0); MEAN CORPUSCULAR HEMOGLOBIN 29.7 pg (27.0-31.0); MEAN CORPUSCULAR HGB CONC 34.3 g/dL (33.0-37.0); MEAN PLATELET VOLUME 7.7 fL (7.2-11.7); MONO # 0.7 K/uL (0.0-0.8); MONO % 6.9 % (0.0-10.0); NRBC % 0.1 % (0.0-2.0); RBC 5.85 Mil/uL (4.40-5.90); RED CELL DISTRIBUTION WIDTH 14.2 % (11.5-14.5); WHITE BLOOD COUNT 10.4 K/uL (4.8-10.8)
[2019-01-02 11:47] LABS: SQUAMOUS EPITHIAL < 1 /hpf (0-5); URINE BILIRUBIN NEGATIVE (NEGATIVE); URINE BLOOD NEGATIVE (NEGATIVE); URINE CLARITY Clear (Clear); URINE COLOR Yellow (YELLOW); URINE GLUCOSE (UA) 3+ mg/dL (Normal); URINE LEUKOCYTE ESTERASE NEG Leu/uL (Negative); URINE PROTEIN 1+ mg/dL (NEGATIVE)
[2019-01-02 12:08] LABS: BLOOD UREA NITROGEN 12 mg/dL (9-20); CALCIUM 9.1 mg/dl (8.6-10.4); GFR NON-AFRICAN AMERICAN > 60; LIPASE 413 U/L (23-300)
[2019-01-02 12:12] LABS: ALB/GLOB RATIO 1.4 (1.0-2.1); ALBUMIN 4.7 g/dL (3.5-5.0); ALT/SGPT 36 U/L (21-72); AST/SGOT 95 U/L (17-59)
[2019-01-02] MEDS ORDERED: Iodixanol 320 MG/ML 100 ML BOTTLE IV ONE (12:43)
--- NOTE | 2019-01-02 13:40 | CT ---
Date of service: 01/02/2019 PROCEDURE: CT Abdomen and Pelvis with intravenous contrast HISTORY: Left lower quadrant abdominal tenderness. Evaluate for diverticulitis. COMPARISON: None. TECHNIQUE: Multiple contiguous axial images were performed through the abdomen and pelvis with the use of intravenous contrast. Subsequently, sagittal and coronal reformatted images were obtained. Radiation dose: Total exam DLP = 1122.17 mGy-cm. This CT exam was performed using one or more of the following dose reduction techniques: Automated exposure control, adjustment of the mA and/or kV according to patient size, and/or use of iterative reconstruction technique. FINDINGS: LOWER THORAX: Coronary calcifications. Scattered atelectasis at the lung bases. LIVER: Fatty infiltration of the liver. GALLBLADDER AND BILE DUCTS: Cholelithiasis. PANCREAS: Mild fatty atrophy of the pancreas. SPLEEN: Unremarkable. Splenule. ADRENALS: Unremarkable. No mass. KIDNEYS AND URETERS: Right kidney: Punctate 3 millimeter hypodensity in the lower pole of the right kidney, too small to adequately characterize. Mild perinephric fat stranding. No gross calculi or hydronephrosis. Left Kidney: Punctate hypodensity in the upper pole of the left kidney, too small to adequately characterize. Mild perinephric fat stranding. Additional punctate hypodensity in the lower pole of the left kidney also too small to adequately characterize. VASCULATURE: Atherosclerotic calcification and plaque within the aorta. BOWEL: Fecal retention in the colon. Mild diffuse scattered thickening of the colon including the descending colon, transverse colon, and ascending colon. These findings may be the sequelae of acute infectious and or inflammatory changes. Few scattered diverticuli noted. APPENDIX: Unremarkable. Normal appendix. PERITONEUM: Unremarkable. No free fluid. No free air. LYMPH NODES: Few shotty para-aortic and inguinal lymph nodes. Few shotty mesenteric lymph nodes. BLADDER: Unremarkable. REPRODUCTIVE: Degenerative changes in the spine. Bridging sclerosis of the bilateral SI joints. BONES: No acute fracture. OTHER FINDINGS: Pelvic vascular calcifications. IMPRESSION: 1. Diffuse mild thickening of the colon. These findings may be the sequelae of acute infectious and or inflammatory changes. Clinical correlation. Few scattered colonic diverticuli. 2. Fatty infiltration of the liver. 3. Cholelithiasis. 4. Mild fatty atrophy of the pancreas. Additional findings as above.
[2019-01-02 14:38] VITALS: BP 146/88; PULSE 95; TEMP 98.1; O2SAT 97
--- NOTE | 2019-01-02 16:25 | C.PDOC ---
History Of Present Illness 63 year old male presents to the ED complaining of diffused abdominal pain for 4 days status post eating at restaurant. Associated with mild distention and constipation. Denies any nausea, vomiting, fever, blood in stools or urine, or any other associated symptoms. Time Seen by Provider: 01/02/19 10:19 Chief Complaint (Nursing): GI Problem History Per: Patient History/Exam Limitations: no limitations Onset/Duration Of Symptoms: Days (4) Current Symptoms Are (Timing): Still Present Location Of Pain/Discomfort: Diffuse Radiation Of Pain To:: None Associated Symptoms: Constipation, Other (mild distention ). denies: Fever, Chills, Nausea, Vomiting, Diarrhea, Back Pain, Chest Pain Past Medical History Reviewed: Historical Data, Nursing Documentation, Vital Signs Vital Signs: Last Vital Signs Temp 98.1 F 01/02/19 14:36 Pulse 95 H 01/02/19 14:36 Resp 18 01/02/19 14:36 BP 146/88 01/02/19 14:36 Pulse Ox 97 01/02/19 14:36 - Medical History PMH: Diabetes, HTN, Pneumonia, TIA (2014; NO RESIDUAL WEAKNESS) Denies: Colonic Polyps, Fractures, Chronic Kidney Disease Surgical History: Denies: Endoscopy Family History: States: No Known Family Hx - Social History Hx Tobacco Use: No Hx Alcohol Use: No Hx Substance Use: Yes - Immunization History Hx Tetanus Toxoid Vaccination: No Hx Influenza Vaccination: Yes Hx Pneumococcal Vaccination: Yes Review Of Systems Except As Marked, All Systems Reviewed And Found Negative. Constitutional: Negative for: Fever, Chills Cardiovascular: Negative for: Chest Pain Gastrointestinal: Positive for: Abdominal Pain, Constipation, Other (mild distention ). Negative for: Nausea, Vomiting, Diarrhea, Hematochezia, Hematemesis Genitourinary: Negative for: Dysuria, Hematuria Musculoskeletal: Negative for: Back Pain Physical Exam - Physical Exam Appears: Non-toxic, No Acute Distress Skin: Warm, Dry, No Rash Head: Normacephalic Eye(s): bilateral: Normal Inspection Nose: Normal Oral Mucosa: Moist Neck: Supple Chest: Symmetrical Cardiovascular: Rhythm Regular Respiratory: Normal Breath Sounds, No Rales, No Rhonchi, No Wheezing Gastrointestinal/Abdominal: Soft, Tenderness (minimal LLQ tenderness ), No Distention, No Guarding, No Rebound Extremity: Bilateral: Atraumatic Neurological/Psych: Oriented x3, Normal Speech Gait: Steady ED Course And Treatment - Laboratory Results Result Diagrams: 01/02/19 11:18 01/02/19 11:18 Lab Results: Total Bilirubin 1.5 mg/dL (0.2-1.3) H 01/02/19 11:18 AST 95 U/L (17-59) H D 01/02/19 11:18 ALT 36 U/L (21-72) 01/02/19 11:18 Alkaline Phosphatase 81 U/L (38-126) 01/02/19 11:18 Total Protein 8.0 g/dL (6.3-8.3) 01/02/19 11:18 Albumin 4.7 g/dL (3.5-5.0) 01/02/19 11:18 Globulin 3.3 gm/dL (2.2-3.9) 01/02/19 11:18 Albumin/Globulin Ratio 1.4 (1.0-2.1) 01/02/19 11:18 Lipase 413 U/L (23-300) H 01/02/19 11:18 Urine Color Yellow (YELLOW) 01/02/19 11:39 Urine Clarity Clear (Clear) 01/02/19 11:39 Urine pH 5.0 (5.0-8.0) 01/02/19 11:39 Ur Specific [place] 1.039 (1.003-1.030) H 01/02/19 11:39 Urine Protein 1+ mg/dL (NEGATIVE) H 01/02/19 11:39 Urine Glucose (UA) 3+ mg/dL (Normal) H 01/02/19 11:39 Urine Ketones 1+ mg/dL (NEGATIVE) H 01/02/19 11:39 Urine Blood Negative (NEGATIVE) 01/02/19 11:39 Urine Nitrate Negative (NEGATIVE) 01/02/19 11:39 Urine Bilirubin Negative (NEGATIVE) 01/02/19 11:39 Urine Urobilinogen 2.0 mg/dL (0.2-1.0) 01/02/19 11:39 Ur Leukocyte Esterase Neg [place]/uL (Negative) 01/02/19 11:39 Urine WBC (Auto) 1 /hpf (0-5) 01/02/19 11:39 Urine RBC (Auto) < 1 /hpf (0-3) 01/02/19 11:39 Ur Squamous Epith Cells < 1 /hpf (0-5) 01/02/19 11:39 O2 Sat by Pulse Oximetry: 97 (RA) Pulse Ox Interpretation: Normal Medical Decision Making Medical Decision Making: Plan - Pepcid 20mg IVP - Zofran 4mg IVP - IV fluids - Urine cultures - CT abd/pel - Bloodwork -UA On re-examination, patient is resting comfortably in no acute distress. Patient reports improvement of symptoms. Patient feels comfortable going home and will be discharged. Patient given follow up instructions. Instructed to return to ER if symptoms worsen or new symptoms arise. Disposition - Disposition Referrals: [facility] Anita Fuller, [Non-Staff] - Disposition: HOME/ ROUTINE Disposition Time: 13:45 Condition: IMPROVED Additional Instructions: BOY BACON, thank you for letting us take care of you today. The emergency medical care you received today was directed at your acute symptoms. If you were prescribed any medication, please fill it and take as directed. It may take several days for your symptoms to resolve. Return to the Emergency Department if your symptoms worsen, do not improve, or if you have any other problems. Please contact your doctor or call one of the physicians/clinics you have been referred to that are listed on the Patient Visit Information form that is included in your discharge packet. Bring any paperwork you were given at discharge with you along with any medications you are taking to your follow up visit. Our treatment cannot replace ongoing medical care by a primary care provider outside of the emergency department. Thank you for allowing the [facility] team to be part of your care today. Follow up with your primary care doctor in 2-3 days for re-evaluation and further management. Prescriptions: Docusate [Colace] 100 mg PO Q8 PRN #20 cap PRN Reason: Constipation Famotidine [Pepcid] 20 mg PO BID #20 tab Instructions: Constipation, Adult (DC) Forms: [facility] ([place]ese) - Clinical Impression Clinical Impression: Constipation - Scribe Statement The provider has reviewed the documentation as recorded by the Scribe Beatrice Kemp All medical record entries made by the Scribe were at my direction and personally dictated by me. I have reviewed the chart and agree that the record accurately reflects my personal performance of the history, physical exam, medical decision making, and the department course for this patient. I have also personally directed, reviewed, and agree with the discharge instructions and disposition.
== END 2019-01-02 14:38 | disposition home or self-care (01) ==
LOC: C.ER 10:03
DX: K59.00 Constipation, unspecified (principal); E11.9 Type 2 diabetes mellitus without complications; I10 Essential (primary) hypertension; Z86.73 Personal history of transient ischemic attack (TIA), and cerebral infarction without residual deficits
CPT/HCPCS: 74177; 80053; 81001; 83690; 85025; 87086; 96374; 96375; 99284; J2405; J7030; Q9967

== ENCOUNTER 2019-01-23 09:51 | Emergency (ER) | payer MEDICAID, OTHER ==
[2019-01-23 09:51] VITALS: BMI 34.0
[2019-01-23 10:06] VITALS: BP 137/87; PULSE 97; RESP 20; TEMP 98.6; O2SAT 100
--- NOTE | 2019-01-23 10:13 | C.PDOC ---
History Of Present Illness Patient is a 63 year old male, with a PMHx of diabetes, who presents to the ED for evaluation of a lipoma on his lower back over the mid spine that he has had over the past 10 years. Patient states that his lipoma has never bothered him and was seen for it 5 years ago where a surgeon told him to leave the lipoma alone if it was not agitating him. Patient states that last night he noticed it was irritated and came in today for it. He reports it as nonpainful and denies any drainage, fever, or other symptoms. Time Seen by Provider: 01/23/19 10:05 Chief Complaint (Nursing): Abnormal Skin Integrity History Per: Patient History/Exam Limitations: no limitations Onset/Duration Of Symptoms: Days (1) Current Symptoms Are (Timing): Still Present Quality Of Symptoms: Other (irritation) Recent travel outside of the [place]: No Additional History Per: Patient Past Medical History Reviewed: Historical Data, Nursing Documentation, Vital Signs Vital Signs: Last Vital Signs Temp 98.6 F 01/23/19 09:56 Pulse 97 H 01/23/19 09:56 Resp 20 01/23/19 09:56 BP 137/87 01/23/19 09:56 Pulse Ox 100 01/23/19 09:56 Primary Care Provider: Tosin Barger - Medical History PMH: Diabetes, HTN, Pneumonia, TIA (2015; NO RESIDUAL WEAKNESS) Denies: Colonic Polyps, Fractures, Chronic Kidney Disease Surgical History: No Surg Hx Denies: Endoscopy Family History: States: No Known Family Hx - Social History Hx Tobacco Use: No Hx Alcohol Use: No Hx Substance Use: Yes - Immunization History Hx Tetanus Toxoid Vaccination: No Hx Influenza Vaccination: Yes Hx Pneumococcal Vaccination: Yes Review Of Systems Constitutional: Negative for: Fever Skin: Positive for: Other (lipoma on lower back over the mid spine. Nontender and no drainage ) Physical Exam - Physical Exam Appears: Non-toxic, No Acute Distress Back: Other (tubular shaped lipoma 12cm long nontender, soft, mobile. Tip of lipoma has become erythematous with an excoriated area where there could be drainage. Rest of skin normal. 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 Disposition Counseled Patient/Family Regarding: Diagnosis - Disposition Referrals: Malik Diego MD [Staff Provider] - Disposition: HOME/ ROUTINE Disposition Time: 10:13 Condition: STABLE Instructions: Lipoma Forms: [facility] (Azeri), Gen Discharge Inst Azeri - POA Present On Arrival: None - Clinical Impression Clinical Impression: Lipoma of lower back - Scribe Statement The provider has reviewed the documentation as recorded by the India Hudson All medical record entries made by the Meghannibsri were at my direction and personally dictated by me. I have reviewed the chart and agree that the record accurately reflects my personal performance of the history, physical exam, medical decision making, and the department course for this patient. I have also personally directed, reviewed, and agree with the discharge instructions and disposition.
== END 2019-01-23 10:23 | disposition home or self-care (01) ==
LOC: C.ER 09:51
DX: D17.1 Benign lipomatous neoplasm of skin and subcutaneous tissue of trunk (principal)

== ENCOUNTER 2019-01-24 08:24 | Emergency (ER) | payer MEDICAID ==
[2019-01-24 08:24] VITALS: BMI 34.0
[2019-01-24 08:30] VITALS: BP 137/79; PULSE 81; RESP 18; TEMP 98.2; O2SAT 100
--- NOTE | 2019-01-24 09:15 | C.PDOC ---
History Of Present Illness 63 year old male with PMHx of diabetes presents to the ED complaining of draining "lipoma" on his back. States he was seen yesterday for same, but notes that the drainage is new today. Notes history of same cyst for the past 10 years. Patient is schedule with surgery for removal of the mass on 02/04/19. Denies any pain or fever. Time Seen by Provider: 01/24/19 08:30 Chief Complaint (Nursing): Abnormal Skin Integrity History Per: Patient History/Exam Limitations: no limitations Onset/Duration Of Symptoms: Days Current Symptoms Are (Timing): Still Present Location Of Injury: Posterior: Back (cyst ) Past Medical History Reviewed: Historical Data, Nursing Documentation, Vital Signs Vital Signs: Last Vital Signs Temp 98.2 F 01/24/19 08:28 Pulse 81 01/24/19 08:28 Resp 18 01/24/19 08:28 BP 137/79 01/24/19 08:28 Pulse Ox 100 01/24/19 08:28 Primary Care Provider: Tosin Barger - Medical History PMH: Diabetes, HTN, Pneumonia, TIA (2014; NO RESIDUAL WEAKNESS) Denies: Colonic Polyps, Fractures, Chronic Kidney Disease Surgical History: No Surg Hx Denies: Endoscopy Family History: States: No Known Family Hx - Social History Hx Tobacco Use: No Hx Alcohol Use: No Hx Substance Use: Yes - Immunization History Hx Tetanus Toxoid Vaccination: No Hx Influenza Vaccination: Yes Hx Pneumococcal Vaccination: Yes Review Of Systems Constitutional: Negative for: Fever Skin: Positive for: Other (cyst ) Physical Exam - Physical Exam Appears: Non-toxic, No Acute Distress Skin: Warm, Dry, No Rash, Other (Mid back: nontender erythematous fluctuant mass, approx 8 cm diameter, with no surrounding erythema, actively draining purulent discharge from tip ) Head: Normacephalic Eye(s): bilateral: Normal Inspection Oral Mucosa: Moist Neck: Supple Chest: Symmetrical Neurological/Psych: Oriented x3, Normal Speech Gait: Steady ED Course And Treatment O2 Sat by Pulse Oximetry: 100 (RA) Pulse Ox Interpretation: Normal Medical Decision Making Medical Decision Making: Plan - Drain fluid 20cc of fluid was drained without difficulty. Incision not performed as cyst was already actively draining or presentation. Patient tolerated procedure well. Dressing was applied. Patient advised to follow up on 02/04 as scheduled. Disposition Counseled Patient/Family Regarding: Diagnosis, Need For Followup - Disposition Disposition: HOME/ ROUTINE Disposition Time: 09:12 Condition: STABLE Additional Instructions: You were seen in the ED for a sebaceous cyst on your lower back. The cyst was drained and bandaged. You should follow up with your surgeon as scheduled because the cyst may come back. Keep the bandage on for 1 day, then you may remove it. Keep the area clean, you may rinse with soap and water. Return to ED if you develop significant pain or fever. Instructions: Epidermal Cyst (DC) Forms: [facility] (Danish) - POA Present On Arrival: None - Clinical Impression Clinical Impression: Sebaceous cyst
== END 2019-01-24 09:30 | disposition home or self-care (01) ==
LOC: C.ER 08:24
DX: L72.3 Sebaceous cyst (principal)